=== PATIENT | female | born 1980 | race Caucasian/White ===

== ENCOUNTER 2016-12-18 08:24 | Emergency (ER) | payer OTHER ==
[2016-12-18 08:34] VITALS: BMI 29.2
--- NOTE | 2016-12-18 08:37 | PDOC ---
History of Present Illness - General Chief Complaint: Pain Stated Complaint: LT SIDE PAIN Time Seen by Provider: 12/18/16 08:36 History Source: Patient Exam Limitations: No Limitations - History of Present Illness Initial Comments: 36 yo F no significant PMH presents with L sided flank and lower abdominal pain since yesterday. She states that the pain started yesterday evening and has been progressively worsening since then. It is now severe and constant. Pain is associated with nausea. No vomiting or diarrhea. No prior similar symptoms. Past History - Past Medical History Allergies/Adverse Reactions: Allergies Allergy/AdvReac Type Severity Reaction Status Date / Time No Known Allergies Allergy Unverified 12/18/16 08:28 Home Medications: Ambulatory Orders Cephalexin Monohydrate [Keflex -] 500 mg PO BID #28 capsule 12/18/16 Ondansetron [Zofran -] 4 mg PO TID PRN #21 tablet 12/18/16 Other medical history: NONE - Psycho/Social/Smoking Cessation Hx Anxiety: No Suicidal Ideation: No Smoking History: Never smoked Number of Cigarettes Smoked Daily: 0 Hx Alcohol Use: No Drug/Substance Use Hx: No Substance Use Type: None Review of Systems - Review of Systems Able to Perform ROS?: Yes Comments:: GENERAL/CONSTITUTIONAL: No fever or chills. No weakness. HEAD, EYES, EARS, NOSE AND THROAT: No change in vision. No ear pain or discharge. No sore throat. CARDIOVASCULAR: No chest pain or shortness of breath. RESPIRATORY: No cough, wheezing, or hemoptysis. GASTROINTESTINAL: +Abdominal pain. +Nausea. No vomiting, diarrhea or constipation. GENITOURINARY: No dysuria, frequency, or change in urination. MUSCULOSKELETAL: No joint or muscle swelling or pain. No neck or back pain. SKIN: No rash NEUROLOGIC: No headache, vertigo, loss of consciousness, or change in strength/ sensation. ENDOCRINE: No increased thirst. No abnormal weight change. HEMATOLOGIC/LYMPHATIC: No anemia, easy bleeding, or history of blood clots. ALLERGIC/IMMUNOLOGIC: No hives or skin allergy. *Physical Exam - Vital Signs Last Vital Signs Temp Pulse Resp BP Pulse Ox 98.2 F 65 18 119/73 99 12/18/16 08:26 12/18/16 08:26 12/18/16 08:26 12/18/16 08:26 12/18/16 08:26 - Physical Exam Comments: GENERAL: Awake, alert, and fully oriented. Appears uncomfortable. HEAD: No signs of trauma EYES: PERRLA, EOMI, sclera anicteric, conjunctiva clear ENT: Auricles normal inspection, hearing grossly normal, nares patent, oropharynx clear without exudates. Moist mucosa NECK: Normal ROM, supple, no lymphadenopathy, JVD, or masses LUNGS: Breath sounds equal, clear to auscultation bilaterally. No wheezes, and no crackles HEART: Regular rate and rhythm, normal S1 and S2, no murmurs, rubs or gallops ABDOMEN: Soft, +LLQ tenderness, normoactive bowel sounds. No guarding, no rebound. No masses. + L CVAT. EXTREMITIES: Normal range of motion, no edema. No clubbing or cyanosis. No cords, erythema, or tenderness NEUROLOGICAL: Cranial nerves II through XII grossly intact. Normal speech, normal gait SKIN: Warm, Dry, normal turgor, no rashes or lesions noted. ED Treatment Course - LABORATORY CBC & Chemistry Diagram: 12/18/16 09:27 12/18/16 09:40 Medical Decision Making - Medical Decision Making CT no acute findings. Will treat for presumed pyelo. Tolerating PO, stable for DC home. *DC/Admit/Observation/Transfer Diagnosis at time of Disposition: Pyelonephritis - Discharge Dispostion Disposition: HOME Condition at time of disposition: Stable Admit: No - Prescriptions Prescriptions: Cephalexin Monohydrate [Keflex -] 500 mg PO BID #28 capsule Ondansetron [Zofran -] 4 mg PO TID PRN #21 tablet PRN Reason: Nausea And/Or Vomiting - Referrals Referrals: Laron Jo MD [Primary Care Provider] - - Patient Instructions Printed Discharge Instructions: DI for Kidney Infection Print Language: SWEDISH
[2016-12-18] MEDS ORDERED: ONDANSETRON 4 MG/2 ML VIAL IVPUSH ONE (09:13)
[2016-12-18] MEDS ORDERED: SODIUM CHLORIDE 1,000 ML IV STA (09:13)
[2016-12-18] MEDS ORDERED: ONDANSETRON 4 MG/2 ML VIAL ONE (09:23)
[2016-12-18 09:50] LABS: BASOPHIL 0.5 % (0-2.0); EOSINOPHIL 0.7 % (0-4.5); MCH 35.4 pg (25.7-33.7); MCHC 36.4 g/dl (32.0-36.0); MEAN CELL VOLUME 97.2 fl (80-96); MEAN PLT VOLUME 9.7 fl (7.5-11.1); PLATELET COUNT 195 K/MM3 (134-434); RDW 12.6 % (11.6-15.6); WHITE BLOOD COUNT 11.9 K/mm3 (4.0-10.0)
[2016-12-18] MEDS ORDERED: KETOROLAC TROMETHAMINE 30 MG/1 ML VIAL IVPUSH ONE (09:54)
[2016-12-18] MEDS ORDERED: KETOROLAC TROMETHAMINE 30 MG/1 ML VIAL ONE (10:01)
[2016-12-18 10:15] LABS: ALBUMIN 3.9 g/dl (3.4-5.0); ALK PHOS 106 U/L (45-117); ANION GAP 7 (8-16); BILIRUBIN,TOTAL 2.7 mg/dL (0.2-1.0); CALCIUM 8.9 mg/dL (8.5-10.1); CO2 29 mmol/L (21-32); CREATININE 0.5 mg/dL (0.55-1.02); GLUCOSE,RANDOM 99 mg/dL (74-106); SGOT/AST 23 U/L (15-37); SGPT/ALT 36 U/L (12-78); TOT PROT 7.7 g/dl (6.4-8.2)
[2016-12-18 11:12] LABS: URINE APPEARANCE CLOUDY; URINE BILIRUBIN NEGATIVE (NEGATIVE); URINE BLOOD 2+ (NEGATIVE); URINE COLOR YELLOW; URINE GLUCOSE (UA) NEGATIVE (NEGATIVE); URINE KETONE NEGATIVE (NEGATIVE); URINE NITRITE POSITIVE (NEGATIVE); URINE UROBILINOGEN NEGATIVE mg/dL (0.2-1.0)
[2016-12-18 11:13] LABS: URINE LEUK ESTERASE 3+ (NEGATIVE); URINE PROTEIN 2+ (NEGATIVE)
[2016-12-18] MEDS ORDERED: CEFTRIAXONE 1 GM in DEXTROSE 5%-WATER - 50 ML IVPB ONE (11:26)
[2016-12-18] MEDS ORDERED: CEFTRIAXONE 50 ML ONE (11:51)
[2016-12-18 12:21] LABS: URINE BACTERIA RARE /hpf (NONE SEEN); URINE RBC 13 /hpf (0-3); URINE WBC 240 /hpf (3-5)
[2016-12-18 12:41] VITALS: BP 106/64; PULSE 68; TEMP 98.6
== END 2016-12-18 12:45 | disposition home or self-care (01) ==
LOC: JER 08:24
PROC: 3E03329 Introduction of Other Anti-infective into Peripheral Vein, Percutaneous Approach (ICD-10-PCS; principal; 2016-12-18)
PROC: 3E0333Z Introduction of Anti-inflammatory into Peripheral Vein, Percutaneous Approach (ICD-10-PCS; 2016-12-18)
PROC: 3E033GC Introduction of Other Therapeutic Substance into Peripheral Vein, Percutaneous Approach (ICD-10-PCS; 2016-12-18)
PROC: 3E0337Z Introduction of Electrolytic and Water Balance Substance into Peripheral Vein, Percutaneous Approach (ICD-10-PCS; 2016-12-18)
DX: N12 Tubulo-interstitial nephritis, not specified as acute or chronic (principal)
CPT/HCPCS: 36415; 74176; 80053; 81003; 81015; 83690; 84703; 85025; 87086; 87186; 96361; 96365; 96375; 99283-25

== ENCOUNTER 2016-12-21 01:53 | Emergency (ER) | payer OTHER ==
--- NOTE | 2016-12-21 01:58 | PDOC ---
History of Present Illness <Dilia Rangel - Last Filed: 12/21/16 06:51> - History of Present Illness Initial Comments: 36 year old female with recent salpingitis, tubal ligation, 2 caesarean sections presenting with abdominal pain that began yesterday afternoon. She was ED 3 days ago with left lower quadrant pain and diagnosed with UTI/ Pyelopnephritis and discharged with Keflex and Zofran. She has been taking her medications as prescribed. Her pain today is mostly in the right upper abdomen and radiates to the back. Endorses chills, nausea, and vomiting. She eventually admitted to ingestion of quesadilla which exacerbated her abdominal pain. Denies fevers, diarrhea, constipation, chest pain, urinary changes, hematuria, or bloody bowel movements. 12/21/16 02:48 12/21/16 04:06 <Sergio Thompson - Last Filed: 12/21/16 07:18> - General Stated Complaint: PAIN Time Seen by Provider: 12/21/16 01:57 Past History <Dilia Rangel - Last Filed: 12/21/16 06:51> - Psycho/Social/Smoking Cessation Hx Anxiety: No Suicidal Ideation: No Smoking History: Never smoked Number of Cigarettes Smoked Daily: 0 Hx Alcohol Use: No Drug/Substance Use Hx: No Substance Use Type: None <Sergio Thompson - Last Filed: 12/21/16 07:18> - Past Medical History Allergies/Adverse Reactions: Allergies Allergy/AdvReac Type Severity Reaction Status Date / Time No Known Allergies Allergy Verified 12/21/16 02:01 Home Medications: Ambulatory Orders Cephalexin Monohydrate [Keflex -] 500 mg PO BID #28 capsule 12/18/16 Ondansetron [Zofran -] 4 mg PO TID PRN #21 tablet 12/18/16 Review of Systems - Review of Systems Constitutional: Yes: Chills. No: Diaphoresis, Fever HEENTM: No: Eye Pain, Blurred Vision, Recent change in vision, Double Vision Respiratory: No: Cough, Orthopnea, Shortness of Breath Cardiac (ROS): No: Chest Pain, Edema, Lightheadedness ABD/GI: Yes: Nausea, Vomiting. No: Diarrhea, Poor Appetite : Yes: Flank Pain (Right flank pain). No: Discharge, Frequency Musculoskeletal: Yes: Back Pain Integumentary: No: Bruising, Erythema Neurological: No: Headache, Numbness <Sergio Thompson - Last Filed: 12/21/16 07:18> *Physical Exam - Vital Signs Last Vital Signs Temp Pulse Resp BP Pulse Ox 97.5 F L 63 20 98/77 98 12/21/16 06:41 12/21/16 06:30 12/21/16 06:30 12/21/16 06:30 12/21/16 06:30 <RangelDilia - Last Filed: 12/21/16 06:51> - Physical Exam General Appearance: Yes: Nourished, Appropriately Dressed, Apparent Distress, Moderate Distress, Other (Actively moaning in pain during exam) HEENT: positive: EOMI, EDVIN, Normal Voice Neck: positive: Trachea midline, Normal Thyroid. negative: Tender Respiratory/Chest: positive: Lungs Clear, Normal Breath Sounds. negative: Chest Tender, Respiratory Distress, Accessory Muscle Use Cardiovascular: positive: Regular Rhythm, Bradycardia, Other (Sinus bradycardia) . negative: Regular Rate Gastrointestinal/Abdominal: positive: Normal Bowel Sounds, Tender (RUQ tenderness with RLQ tenderness. Voluntary guarding. Negative Rosving's sign, negative mcburney's sign), Soft. negative: Flat, Organomegaly Musculoskeletal: positive: Normal Inspection Extremity: positive: Normal Inspection, Normal Range of Motion. negative: Tender Integumentary: positive: Normal Color, Dry, Warm Neurologic: positive: Fully Oriented, Alert, Other (Writhing in pain) <Sergio Thompson - Last Filed: 12/21/16 07:18> ED Treatment Course - LABORATORY CBC & Chemistry Diagram: 12/21/16 02:53 12/21/16 04:00 - ADDITIONAL ORDERS Additional order review: Laboratory Results 12/21/16 12/21/16 12/21/16 04:50 04:00 02:53 Sodium 138 Cancelled Potassium 3.7 Cancelled Chloride 104 Cancelled Carbon Dioxide 26 Cancelled Anion Gap 8 Cancelled BUN 12 Cancelled Creatinine 0.5 L Cancelled Creat Clearance w eGFR > 60 Cancelled Random Glucose 118 H Cancelled Calcium 8.2 L Cancelled Total Bilirubin 1.5 H D Cancelled AST 23 Cancelled ALT 36 Cancelled Alkaline Phosphatase 107 Cancelled Total Protein 7.0 Cancelled Albumin 3.4 Cancelled Total Amylase 36 Lipase 180 Urine Color Straw Urine Appearance Clear Urine pH 6.0 Urine Protein Negative Urine Glucose (UA) Negative Urine Ketones Negative Urine Blood Negative Urine Nitrite Negative Urine Bilirubin Negative Urine Urobilinogen Negative Ur Leukocyte Esterase 3+ H Urine RBC 8 Urine WBC 17 Ur Epithelial Cells Few Urine Bacteria Rare Urine Mucus Rare Urine HCG, Qual Negative 12/21/16 02:53 RBC 3.89 MCV 98.2 H MCHC 35.1 RDW 12.8 MPV 9.5 Neutrophils % 57.5 D Lymphocytes % 33.3 D Monocytes % 6.0 Eosinophils % 2.3 D Basophils % 0.9 - RADIOLOGY Radiology Studies Ordered: Category Date Time Status CHEST X-RAY PORTABLE* [RAD] Stat Radiology 12/21/16 03:51 Taken ABDOMEN US -LIMITED [US] Stat Ultrasound 12/21/16 02:46 Ordered - Medications Given in the ED: ED Medications Discontinued Medications Generic Name Dose Route Start Last Admin Trade Name Freq PRN Reason Stop Dose Admin Acetaminophen 1,000 mg 12/21/16 03:21 12/21/16 03:27 Ofirmev Injection - IVPB 12/21/16 03:22 1,000 mg ONCE ONE Administration Morphine Sulfate 2 mg 12/21/16 02:38 12/21/16 02:52 Morphine Injection - IVPUSH 12/21/16 02:39 2 mg ONCE ONE Administration Morphine Sulfate 2 mg 12/21/16 03:18 12/21/16 03:27 Morphine Injection - IVPUSH 12/21/16 03:19 Not Given ONCE ONE Sodium Chloride 1,000 ml 12/21/16 03:33 12/21/16 03:40 Normal Saline - IV 12/21/16 03:34 1,000 ml ONCE ONE Administration <Dilia Rangel - Last Filed: 12/21/16 06:51> - LABORATORY CBC & Chemistry Diagram: 12/21/16 02:53 12/21/16 04:00 <Segrio Thompson - Last Filed: 12/21/16 07:18> Medical Decision Making - Medical Decision Making 36 year old female with recent ED visit for UTI/ Pyelonephritis (discharged with Keflex three days previous) presenting with RUQ and LLQ tenderness to palpation. The patient still has her gallbladder and appendix so cholelithiasis and appendicitis are high on the differential as well as right sided pyelonephritis. Will obtain CMP, CBC, and RUQ ultrasound and administer 2 MG of Morphine. 12/21/16 04:00 At approximately 3:50 AM the patient was continuing to moan in pain at which point the attending was asked consulted on which pain medications to administer. It was agreed upon to administer 1G of Tylenol IV. When the attending was evaluating the patient, it was noticed that she was again bradycardic at which point an EKG was ordered. A blood pressure was repeated and noted to be 106 systolic which was a drop from her presenting pressure of 137 systolic. An abdominal ultrasound was notable for multiple stones in her gallbladder. Her repeat pressure was 108 systolic and 1 L NS was started on her. 12/21/16 05:35 Patient's pain well controlled and she is talking to her friend at bedside without difficulty. Labs significant for Bili 1.5, Urine WBC 17, and Urine Leuk Esterase. 12/21/16 07:15 The patient was signed out to Dr. Contreras at 7:00 AM in stable condition pending an abdominal US. 12/21/16 07:16 12/21/16 07:18 <Sergio Thompson - Last Filed: 12/21/16 07:18> *DC/Admit/Observation/Transfer <Dilia Rangel - Last Filed: 12/21/16 06:51> - Discharge Dispostion Admit: No <Sergio Thompson - Last Filed: 12/21/16 07:18> Diagnosis at time of Disposition: Cholelithiases - Referrals Referrals: Edith Jean MD [Primary Care Provider] -
[2016-12-21 02:23] VITALS: BMI 29.7
[2016-12-21] MEDS ORDERED: morphine CARPU-JECT 2 MG/1 ML DISP.SYRIN IVPUSH ONE ×2 (02:38→03:18)
[2016-12-21] MEDS ORDERED: morphine CARPU-JECT 4 MG/1 ML DISP.SYRIN ONE (02:45)
--- NOTE | 2016-12-21 02:49 | PDOC ---
Attending Attestation - Resident Resident Name: Jeison Thompsonbonniepetar - HPI HPI: 12/21/16 04:22 RUQ pain began today in earnest; pt is overweight and she ate quesadillas. SHe has bilary colic and bedside US shows multiple large stones in the GB, however unclear if she has GB wall thickening. Pt had a bad reaction to the morphine 2mg that we gave her -- she became hypotensive and bradycardic -- and as a result she was hydrated and we were about to give atropine, however, pt didn't require it; her HR came up to mid 50s and 1L fluid was bolused. - Physicial Exam PE: 12/21/16 05:55 Agree with resident's note. Pt has RUQ pain. Afebrile low BP and slow HR. EKG bradycardia; sinus rhythm. Labs show LFTs are normal; Total Bili is elevated. Pt is awaiting SONO GB and liver. SHe will be signed out to the day ER. 12/21/16 06:29 CXR portable is clear; rotated film - Medical Decision Making 12/21/16 19:34 Pt will be signed out to the ER day doctor who will follow her AM sonogram and disposition the patient accordingly.
[2016-12-21 03:00] LABS: BASOPHIL 0.9 % (0-2.0); EOSINOPHIL 2.3 % (0-4.5); MCH 34.5 pg (25.7-33.7); MCHC 35.1 g/dl (32.0-36.0); MEAN CELL VOLUME 98.2 fl (80-96); MEAN PLT VOLUME 9.5 fl (7.5-11.1); NEUTROPHILS 57.5 % (42.8-82.8); PLATELET COUNT 223 K/MM3 (134-434); RDW 12.8 % (11.6-15.6)
[2016-12-21] MEDS ORDERED: ACETAMINOPHEN 1000 MG/100 ML VIAL (NON FORMULARY) IVPB ONE (03:21)
[2016-12-21] MEDS ORDERED: ACETAMINOPHEN INJECTION 100 ML IVPB ONE (03:21)
[2016-12-21] MEDS ORDERED: ATROPINE SULFATE 1 MG/10 ML DISP.SYRIN ONE (03:29)
[2016-12-21] MEDS ORDERED: SODIUM CHLORIDE 0.9% 1000 ML INFUS.BAG IV ONE (03:33)
[2016-12-21 04:33] LABS: ALBUMIN 3.4 g/dl (3.4-5.0); AMYLASE 36 U/L (25-115); ANION GAP 8 (8-16); BILIRUBIN,TOTAL 1.5 mg/dL (0.2-1.0); CALCIUM 8.2 mg/dL (8.5-10.1); CO2 26 mmol/L (21-32); CREATININE 0.5 mg/dL (0.55-1.02); GLUCOSE,RANDOM 118 mg/dL (74-106); SGOT/AST 23 U/L (15-37); SGPT/ALT 36 U/L (12-78)
[2016-12-21 04:34] LABS: ALK PHOS 107 U/L (45-117)
[2016-12-21 04:56] LABS: URINE APPEARANCE CLEAR; URINE BILIRUBIN NEGATIVE (NEGATIVE); URINE BLOOD NEGATIVE (NEGATIVE); URINE COLOR STRAW; URINE GLUCOSE (UA) NEGATIVE (NEGATIVE); URINE KETONE NEGATIVE (NEGATIVE); URINE NITRITE NEGATIVE (NEGATIVE); URINE PROTEIN NEGATIVE (NEGATIVE); URINE UROBILINOGEN NEGATIVE mg/dL (0.2-1.0)
[2016-12-21 04:57] LABS: URINE LEUK ESTERASE 3+ (NEGATIVE)
[2016-12-21 05:00] LABS: URINE BACTERIA RARE /hpf (NONE SEEN); URINE MUCUS RARE; URINE RBC 8 /hpf (0-3); URINE WBC 17 /hpf (3-5)
[2016-12-21 08:21] VITALS: BP 102/57; PULSE 68; TEMP 98
--- NOTE | 2016-12-21 09:50 | PDOC ---
*Physical Exam - Vital Signs Last Vital Signs Temp Pulse Resp BP Pulse Ox 98.0 F 68 18 102/57 98 12/21/16 08:20 12/21/16 08:20 12/21/16 08:20 12/21/16 08:20 12/21/16 08:20 ED Treatment Course - LABORATORY CBC & Chemistry Diagram: 12/21/16 02:53 12/21/16 04:00 - ADDITIONAL ORDERS Additional order review: Laboratory Results 12/21/16 12/21/16 12/21/16 04:50 04:00 02:53 Sodium 138 Cancelled Potassium 3.7 Cancelled Chloride 104 Cancelled Carbon Dioxide 26 Cancelled Anion Gap 8 Cancelled BUN 12 Cancelled Creatinine 0.5 L Cancelled Creat Clearance w eGFR > 60 Cancelled Random Glucose 118 H Cancelled Calcium 8.2 L Cancelled Total Bilirubin 1.5 H D Cancelled AST 23 Cancelled ALT 36 Cancelled Alkaline Phosphatase 107 Cancelled Total Protein 7.0 Cancelled Albumin 3.4 Cancelled Total Amylase 36 Lipase 180 Urine Color Straw Urine Appearance Clear Urine pH 6.0 Urine Protein Negative Urine Glucose (UA) Negative Urine Ketones Negative Urine Blood Negative Urine Nitrite Negative Urine Bilirubin Negative Urine Urobilinogen Negative Ur Leukocyte Esterase 3+ H Urine RBC 8 Urine WBC 17 Ur Epithelial Cells Few Urine Bacteria Rare Urine Mucus Rare Urine HCG, Qual Negative 12/21/16 02:53 RBC 3.89 MCV 98.2 H MCHC 35.1 RDW 12.8 MPV 9.5 Neutrophils % 57.5 D Lymphocytes % 33.3 D Monocytes % 6.0 Eosinophils % 2.3 D Basophils % 0.9 - Medications Given in the ED: ED Medications Discontinued Medications Generic Name Dose Route Start Last Admin Trade Name Prema PRN Reason Stop Dose Admin Acetaminophen 1,000 mg 12/21/16 03:21 12/21/16 03:27 Ofirmev Injection - IVPB 12/21/16 03:22 1,000 mg ONCE ONE Administration Morphine Sulfate 2 mg 12/21/16 02:38 12/21/16 02:52 Morphine Injection - IVPUSH 12/21/16 02:39 2 mg ONCE ONE Administration Morphine Sulfate 2 mg 12/21/16 03:18 12/21/16 03:27 Morphine Injection - IVPUSH 12/21/16 03:19 Not Given ONCE ONE Sodium Chloride 1,000 ml 12/21/16 03:33 12/21/16 03:40 Normal Saline - IV 12/21/16 03:34 1,000 ml ONCE ONE Administration Medical Decision Making - Medical Decision Making 12/21/16 09:45 36F with recent ED visit for UTI on Keflex 3 days ago presenting with RUQ and LLQ on palpation. U/S showed 2.3cm calculus on gallbladder lumen. To be evaluated by Dr. Ramachandran outpatient. 12/21/16 09:52 Patient stable, improved and comfortable. ready for d/c *DC/Admit/Observation/Transfer Diagnosis at time of Disposition: Cholelithiases - Discharge Dispostion Disposition: HOME Condition at time of disposition: Improved Admit: No - Prescriptions Prescriptions: Naproxen [Naprosyn -] 500 mg PO BID #14 tablet - Referrals Referrals: Edith Jean MD [Primary Care Provider] - Attila Ramachandran MD [Staff Physician] - - Patient Instructions Printed Discharge Instructions: Kidney Stones -- Adult, DI for Kidney Stones, DI for Extracorporeal Shock Wave Lithotripsy, Laparoscopic Ureterolithotomy Print Language: TURKISH - Post Discharge Activity
--- NOTE | 2016-12-22 18:28 | EKG ---
Test Reason : Blood Pressure : / mmHG Vent. Rate : 054 BPM Atrial Rate : 054 BPM P-R Int : 170 ms QRS Dur : 084 ms QT Int : 410 ms P-R-T Axes : 027 -03 031 degrees QTc Int : 388 ms SINUS BRADYCARDIA NONDIAGNOSTIC Q WAVE IN III aVF ATYPICAL R PROGRESSION V1-V3 PROBABLE ATRIAL AN[BNORMALITY NORMAL ST-T WAVES NO PREVIOUS ECGS AVAILABLE CLINICAL CORRELATION IS RECOMMENDED Confirmed by ERICA YUEN MD ([id number]) on 12/22/2016 6:28:04 PM Referred By: Confirmed By:ERICA YUEN MD
== END 2016-12-21 10:03 | disposition home or self-care (01) ==
LOC: JER 01:53
PROC: 3E033NZ Introduction of Analgesics, Hypnotics, Sedatives into Peripheral Vein, Percutaneous Approach (ICD-10-PCS; principal; 2016-12-21)
DX: K80.20 Calculus of gallbladder without cholecystitis without obstruction (principal); Z87.440 Personal history of urinary (tract) infections
CPT/HCPCS: 36415; 71010-TC; 76705-TC; 80053; 81003; 81015; 82150; 83690; 84703; 85025; 93005; 93010; 96374; 96375; 99284-25

== ENCOUNTER 2017-04-20 20:03 | Emergency (ER) | payer OTHER ==
[2017-04-20 20:11] VITALS: BP 114/82; PULSE 72; TEMP 98; BMI 31.2
--- NOTE | 2017-04-20 20:21 | PDOC ---
History of Present Illness - General History Source: Patient Exam Limitations: No Limitations - History of Present Illness Initial Comments: 04/20/17 21:22 The patient is a 37 year old female, with a significant past medical history of , who presents to the emergency department with a headache for the past 3 days. She describes her headache as diffused throughout, ranging from mild to moderate and constant in nature. She reports that the headache is exacerbated with light. She also reports that taking Advil usually helps alleviate her headache. She states she is also experiencing left face numbness and left hand numbness that usually resolves. She denies any changes in vision, bowel or bladder habits. The patient denies chest pain, shortness of breath, and dizziness. Denies fever , chills, nausea, vomit, diarrhea and constipation. Denies dysuria, frequency, urgency and hematuria. LMP: 04/13/2017 Allergies: None Past surgical history: (x2), tubal ligation. Social history: No alcohol, tobacco or drug use reported <Deondre Mehta - Last Filed: 04/20/17 21:22> <Smita Ng - Last Filed: 04/21/17 01:08> - General Chief Complaint: Headache Stated Complaint: HEADACHE Time Seen by Provider: 04/20/17 20:14 Past History <Deondre Mehta - Last Filed: 04/20/17 21:22> - Past Medical History COPD: No - Suicide/Smoking/Psychosocial Hx Smoking History: Never smoked Number of Cigarettes Smoked Daily: 0 Hx Alcohol Use: No Drug/Substance Use Hx: No Substance Use Type: None <Smita Ng - Last Filed: 04/21/17 01:08> - Past Medical History Allergies/Adverse Reactions: Allergies Allergy/AdvReac Type Severity Reaction Status Date / Time morphine AdvReac Verified 04/20/17 21:29 Home Medications: Ambulatory Orders Ibuprofen [Advil -] 600 mg PO TID PRN 04/20/17 Review of Systems - Review of Systems Able to Perform ROS?: Yes Comments:: 04/20/17 21:24 GENERAL/CONSTITUTIONAL: No fever or chills. No weakness. HEAD, EYES, EARS, NOSE AND THROAT: No change in vision. No ear pain or discharge. No sore throat.- CARDIOVASCULAR: No chest pain or shortness of breath RESPIRATORY: No cough, wheezing, or hemoptysis. GASTROINTESTINAL: No nausea, vomiting, diarrhea or constipation. GENITOURINARY: No dysuria, frequency, or change in urination. MUSCULOSKELETAL: No joint or muscle swelling or pain. No neck or back pain. SKIN: No rash NEUROLOGIC: (+) Headache, left hand numbness and left face numbness. No vertigo , loss of consciousness. ENDOCRINE: No increased thirst. No abnormal weight change HEMATOLOGIC/LYMPHATIC: No anemia, easy bleeding, or history of blood clots. ALLERGIC/IMMUNOLOGIC: No hives or skin allergy. <Deondre Mehta - Last Filed: 04/20/17 21:22> *Physical Exam - Vital Signs Last Vital Signs Temp Pulse Resp BP Pulse Ox 98 F 72 16 114/82 99 04/20/17 20:09 04/20/17 20:09 04/20/17 20:09 04/20/17 20:09 04/20/17 20:09 - Physical Exam Comments: 04/20/17 21:24 GENERAL: Awake, alert, and fully oriented, in no acute distress HEAD: No signs of trauma, normocephalic, atraumatic EYES: PERRLA, EOMI, sclera anicteric, conjunctiva clear ENT: Auricles normal inspection, hearing grossly normal, nares patent, oropharynx clear without exudates. Moist mucosa NECK: Normal ROM, supple, no lymphadenopathy, JVD, or masses LUNGS: No distress, speaks full sentences, clear to auscultation bilaterally HEART: Regular rate and rhythm, normal S1 and S2, no murmurs, rubs or gallops, peripheral pulses normal and equal bilaterally. ABDOMEN: Soft, nontender, normoactive bowel sounds. No guarding, no rebound. No masses EXTREMITIES : Normal inspection, Normal range of motion, no edema. No clubbing or cyanosis. NEUROLOGICAL: Cranial nerves II through XII grossly intact. Normal speech, normal gait, no focal sensorimotor deficits SKIN: Warm, Dry, normal turgor, no rashes or lesions noted. <Deondre Mehta - Last Filed: 04/20/17 21:22> - Vital Signs Last Vital Signs Temp Pulse Resp BP Pulse Ox 98 F 72 16 114/82 99 04/20/17 20:09 04/20/17 20:09 04/20/17 20:09 04/20/17 20:09 04/20/17 20:09 <Smita Ng - Last Filed: 04/21/17 01:08> Medical Decision Making - Medical Decision Making 04/20/17 22:52 PT HAD C/O HEADACHE FOR LAST 3 DAYS , NO visual changes,no nasuea or vomiting NO GROSS FOCAL NEURO DEFICITS -NO CONSTITUTIONAL SYMPTOMS -pt had brief dystonic response to reglan because she got the reglan before her benadrly,her symptoms resolved NIHSS is zero -pt's headache resolved 04/21/17 00:34 ct scan of head: There is no evidence of acute infarction, and is no hemorrhage , no mass lesion is seen, no skull fracture <Smita Ng - Last Filed: 04/21/17 01:08> *DC/Admit/Observation/Transfer - Attestations Scribe Attestion: 04/20/17 20:25 Documentation prepared by Deondre Mehta, acting as medical staff specialist for Smita Ng MD <Deondre Mehta - Last Filed: 04/20/17 21:22> <Smita Ng - Last Filed: 04/21/17 01:08> Diagnosis at time of Disposition: Headache Qualifiers: Headache type: new daily persistent Qualified Code(s): G44.52 - New daily persistent headache (NDPH) - Discharge Dispostion Disposition: HOME Condition at time of disposition: Stable - Referrals Referrals: Siddharth Keller DO [Staff Physician] - - Patient Instructions Printed Discharge Instructions: DI for Hormonal and Tension Headaches Additional Instructions: please follow up with your doctor or see a neurologist for further evaluation of your headaches Return to the emergency department for any worsening symptoms
[2017-04-20] MEDS ORDERED: KETOROLAC TROMETHAMINE 60 MG/2 ML VIAL ONE (20:29)
[2017-04-20] MEDS ORDERED: METOCLOPRAMIDE HCL INJECTION 10 MG/2 ML VIAL IVPUSH ONE (21:10)
[2017-04-20] MEDS ORDERED: METOCLOPRAMIDE HCL INJECTION 10 MG/2 ML VIAL ONE (21:15)
[2017-04-20] MEDS ORDERED: methylPREDNISolone NA SUCC 125 MG/2 ML VIAL ONE (21:33)
[2017-04-20 23:18] LABS: URINE APPEARANCE CLEAR; URINE BILIRUBIN NEGATIVE (NEGATIVE); URINE BLOOD NEGATIVE (NEGATIVE); URINE COLOR LTYELLOW; URINE GLUCOSE (UA) NEGATIVE (NEGATIVE); URINE KETONE NEGATIVE (NEGATIVE); URINE NITRITE NEGATIVE (NEGATIVE); URINE PROTEIN NEGATIVE (NEGATIVE); URINE UROBILINOGEN NEGATIVE mg/dL (0.2-1.0)
[2017-04-21 12:24] LABS: URINE LEUK ESTERASE Negative (NEGATIVE)
== END 2017-04-21 02:11 | disposition home or self-care (01) ==
LOC: JER 20:03
PROC: 3E033GC Introduction of Other Therapeutic Substance into Peripheral Vein, Percutaneous Approach (ICD-10-PCS; principal; 2017-04-20)
DX: G44.52 New daily persistent headache (NDPH) (principal)
CPT/HCPCS: 70450-TC; 81003; 96374; 96375; 99282-25

== ENCOUNTER 2017-06-29 16:32 | Emergency (ER) | payer OTHER ==
[2017-06-29 16:48] VITALS: BP 108/77; PULSE 76; TEMP 98.4; BMI 30.2
--- NOTE | 2017-06-29 17:37 | PDOC ---
History of Present Illness - General Chief Complaint: Respiratory Stated Complaint: FEVER Time Seen by Provider: 06/29/17 17:36 History Source: Patient Exam Limitations: No Limitations - History of Present Illness Initial Comments: 06/29/17 17:36 Patient is a [37-year-old female, no significant medical history currently on no medication presents with headache, fever, generalized body aches and cough, cough is nonproductive. No chest pain or shortness of breath. Father with similar symptoms. Not taken anything for the headache or fever. Symptoms started suddenly on Friday evening.] Past Medical History: [Denies]. Allergies: No known allergies Medications: [None] Family History: Non-contributory Social History: Denies smoking, alcohol use, or IVDU Vital signs on arrival are [notable for temperature of 94] Review of Systems GENERAL/CONSTITUTIONAL: [Fever and generalized body aches. No weakness. No weight change.] HEAD, EYES, EARS, NOSE AND THROAT: [No change in vision. No ear pain or discharge. No sore throat. ] CARDIOVASCULAR: [No chest pain or shortness of breath.] RESPIRATORY: [Moist cough, no wheezing, or hemoptysis.] GASTROINTESTINAL: [No nausea, vomiting, diarrhea or constipation. No rectal bleeding.] GENITOURINARY: [No dysuria, frequency, or change in urination.] MUSCULOSKELETAL: [No joint or muscle swelling or pain. No neck or back pain.] SKIN AND BREASTS: [No rash or easy bruising.] NEUROLOGIC: [Frontal headache, no vertigo, loss of consciousness, or loss of sensation.] PSYCHIATRIC: [No depression or anxiety.] ENDOCRINE: [No increased thirst. No abnormal weight change.] HEMATOLOGIC/LYMPHATIC: [No anemia, easy bleeding, or history of blood clots.] ALLERGIC/IMMUNOLOGIC: [No hives or skin allergy. No latex allergy.] Physical Exam: GENERAL: [The patient is awake, alert, and fully oriented, in no acute distress. ] HEAD: [Normal with no signs of trauma.] EYES: [Pupils equal, round and reactive to light, extraocular movements intact, sclera anicteric, conjunctiva clear.] ENT: [Ears normal, nares patent, oropharynx clear without exudates. Moist mucous membranes. No uvula deviation] NECK: [Normal range of motion, supple without lymphadenopathy, JVD, or masses.] LUNGS: [Breath sounds equal, clear to auscultation bilaterally. No wheezes, and no crackles.] HEART: [Regular rate and rhythm, normal S1 and S2 without murmur, rub or gallop. ] ABDOMEN: [Soft, nontender, normoactive bowel sounds. No guarding, no rebound. No masses. No bruising or abrasions] MUSCULOSKELETAL: [Normal range of motion, no edema. No clubbing or cyanosis. No cords, erythema, or tenderness. No CVA Tenderness with fist.] NEUROLOGICAL: [Cranial nerves II through XII grossly intact. Normal speech, normal gait.] SKIN: [Warm, Dry, normal turgor, no rashes or lesions noted.] Past History - Past Medical History Allergies/Adverse Reactions: Allergies Allergy/AdvReac Type Severity Reaction Status Date / Time morphine AdvReac Verified 06/29/17 16:44 Home Medications: Ambulatory Orders Ibuprofen [Advil -] 600 mg PO TID PRN 04/20/17 Ibuprofen [Motrin -] 600 mg PO QID #28 tablet 06/29/17 Oseltamivir Phosphate [Tamiflu -] 75 mg PO BID #10 capsule 06/29/17 COPD: No - Immunization History Immunization Up to Date: No - Suicide/Smoking/Psychosocial Hx Smoking History: Never smoked Number of Cigarettes Smoked Daily: 0 Hx Alcohol Use: No Drug/Substance Use Hx: No Substance Use Type: None *Physical Exam - Vital Signs Last Vital Signs Temp Pulse Resp BP Pulse Ox 98.4 F 76 20 108/77 100 06/29/17 16:45 06/29/17 16:45 06/29/17 16:45 06/29/17 16:45 06/29/17 16:45 Medical Decision Making - Medical Decision Making 06/29/17 17:53 A/P: Patient here for influenza-type illness father with similar symptoms, Motrin given for headache will send rapid influenza 06/29/17 19:37 Rapid influenza is negative, ports that she has history of chronic headaches after have told her that her rapid influenza is -2 months ago received head CT which was negative. I will give by mouth challenge because of nausea. This and tolerating fluids without difficulty. Influenza-type illness a will DC on Tamiflu. I discussed the physical exam findings, ancillary test results and final diagnoses with the patient. I answered all of the patient's questions. The patient was satisfied with the care received and felt comfortable with the discharge plan and treatment plan. The patient will call to arrange follow-up and will return to the Emergency Department with any new, persistent or worsening symptoms. 06/29/17 19:39 06/29/17 20:03 *DC/Admit/Observation/Transfer Diagnosis at time of Disposition: Flu-like symptoms - Discharge Dispostion Disposition: HOME Condition at time of disposition: Stable Admit: No - Prescriptions Prescriptions: Ibuprofen [Motrin -] 600 mg PO QID #28 tablet Oseltamivir Phosphate [Tamiflu -] 75 mg PO BID #10 capsule - Referrals Referrals: Thomas Fraga MD [Primary Care Provider] - - Patient Instructions Printed Discharge Instructions: Influenza Additional Instructions: Increase fluids to prevent dehydration Tylenol for headache Motrin for fever greater than 101.0 Please followup with primary care in 3 days if symptoms persist Return to emergency department any increased cough, fever, inability to drink or other concerns - Post Discharge Activity Forms/Work/School Notes: Back to Work
[2017-06-29] MEDS ORDERED: IBUPROFEN 600 MG TABLET (FP) PO ONE ×2 (17:46→17:53)
[2017-06-29] MEDS ORDERED: SODIUM CHLORIDE 0.9% 1000 ML INFUS.BAG IV ONE (19:38)
== END 2017-06-29 20:22 | disposition home or self-care (01) ==
LOC: JERFT 16:32
DX: J11.1 Influenza due to unidentified influenza virus with other respiratory manifestations (principal)
CPT/HCPCS: 87804; 99281-25

== ENCOUNTER 2017-09-01 03:13 | Emergency (ER) | payer OTHER ==
[2017-09-01 04:06] VITALS: BMI 27.1
--- NOTE | 2017-09-01 04:06 | PDOC ---
History of Present Illness - General Stated Complaint: CHEST DISCOMFORT Time Seen by Provider: 09/01/17 03:42 History Source: Patient - History of Present Illness Initial Comments: 09/01/17 04:18 37 year old female presents to ED c/o chest pain. Patient state the pain is L sided, "pounding," intermittent, non-radiating and non-positional. Patient states she first felt the pain last week -- it woke her from sleep-- the pain resolved and returned this morning prompting her visit to our facility. Endorses subjective dyspnea, nausea, but not vomiting and intermittent palpitations. Also c/o B/L hand and pedal edema. Recent h/o liposuction 2 weeks previous. Allergy: Morphine Surgical: C/S x2 09/01/17 06:48 Past History - Past Medical History Allergies/Adverse Reactions: Allergies Allergy/AdvReac Type Severity Reaction Status Date / Time morphine AdvReac Verified 06/29/17 16:44 Home Medications: Ambulatory Orders Nitrofurantoin Monohyd/M-Cryst [Macrobid -] 100 mg PO BID #14 capsule 09/01/17 COPD: No - Immunization History Immunization Up to Date: No - Suicide/Smoking/Psychosocial Hx Smoking History: Never smoked Number of Cigarettes Smoked Daily: 0 Hx Alcohol Use: No Drug/Substance Use Hx: No Substance Use Type: None Review of Systems - Review of Systems Constitutional: No: Chills, Fever HEENTM: No: Recent change in vision Respiratory: Yes: Shortness of Breath. No: Productive cough Cardiac (ROS): Yes: Chest Pain. No: Lightheadedness, Palpitations ABD/GI: Yes: Nausea. No: Constipated, Diarrhea, Vomiting : No: Burning, Dysuria *Physical Exam - Physical Exam General Appearance: Yes: Nourished, Appropriately Dressed Neck: positive: Trachea midline, Supple Respiratory/Chest: positive: Lungs Clear Cardiovascular: positive: S1, S2. negative: Edema Vascular Pulses: Dorsalis-Pedis (R): 2+, Doralis-Pedis (L): 2+ Gastrointestinal/Abdominal: positive: Normal Bowel Sounds, Soft. negative: Distended, Guarding, Tenderness, Hernia, Mass Musculoskeletal: negative: CVA Tenderness (R), CVA Tenderness (L) Extremity: positive: Normal Capillary Refill, Normal Inspection Integumentary: positive: Normal Color, Dry, Warm Neurologic: positive: Fully Oriented, Alert ED Treatment Course - LABORATORY CBC & Chemistry Diagram: 09/01/17 04:05 09/01/17 04:05 Medical Decision Making - Medical Decision Making 09/01/17 06:52 37 year old female presents to ED c/o non-radiating L sided chest pain w/ subjective dyspnea. Vitals unremarkable. DDx r/o ACS, Hypothyroidism, PNA. Will obtain basic labs, CXR, Troponin. Reasess. *DC/Admit/Observation/Transfer Diagnosis at time of Disposition: Chest pain - Discharge Dispostion Disposition: HOME Condition at time of disposition: Good Admit: No - Prescriptions Prescriptions: Nitrofurantoin Monohyd/M-Cryst [Macrobid -] 100 mg PO BID #14 capsule - Referrals Referrals: Thomas Fraga MD [Primary Care Provider] - - Patient Instructions Printed Discharge Instructions: DI for Atypical Chest Pain Additional Instructions: A prescription has been called to your pharmacy. Please take the entire antibiotic course. Follow-up with your primary care doctor in the next 2 days. Return to the ED for any new/worsening/symptoms - Post Discharge Activity
[2017-09-01 04:17] LABS: BASO % 0.7 % (0-2.0); EOS % 3.1 % (0-4.5); HEMATOCRIT 37.2 % (32.4-45.2); HEMOGLOBIN 13.4 GM/dL (10.7-15.3); MCH 35.6 pg (25.7-33.7); MCHC 35.9 g/dl (32.0-36.0); MEAN CELL VOLUME 99.1 fl (80-96); MEAN PLT VOLUME 9.6 fl (7.5-11.1); MONO % 6.3 % (3.8-10.2); NEUT % 59.9 % (42.8-82.8); PLATELET COUNT 247 K/MM3 (134-434); RBC 3.75 M/mm3 (3.60-5.2); RDW 13.3 % (11.6-15.6); WHITE BLOOD COUNT 6.2 K/mm3 (4.0-10.0)
[2017-09-01 04:42] LABS: ALBUMIN 3.9 g/dl (3.4-5.0); ANION GAP 7 (8-16); BILIRUBIN,TOTAL 1.2 mg/dL (0.2-1.0); BLOOD UREA NITROGEN 12 mg/dL (7-18); CALCIUM 8.6 mg/dL (8.5-10.1); CHLORIDE 107 mmol/L (98-107); CO2 26 mmol/L (21-32); CREATININE 0.5 mg/dL (0.55-1.02); GLUCOSE,RANDOM 93 mg/dL (74-106); POTASSIUM 3.9 mmol/L (3.5-5.1); SGOT/AST 24 U/L (15-37); SGPT/ALT 46 U/L (12-78); SODIUM 140 mmol/L (136-145); TOT PROT 7.5 g/dl (6.4-8.2)
[2017-09-01 04:51] LABS: ALK PHOS 86 U/L (45-117)
[2017-09-01 06:36] LABS: URINE APPEARANCE CLOUDY; URINE BILIRUBIN NEGATIVE (<2.0 mg/dL); URINE BLOOD 1+ (NEGATIVE); URINE COLOR YELLOW; URINE GLUCOSE (UA) NEGATIVE (NEGATIVE); URINE KETONE NEGATIVE (NEGATIVE); URINE NITRITE NEGATIVE (NEGATIVE); URINE PROTEIN NEGATIVE (NEGATIVE); URINE UROBILINOGEN NEGATIVE mg/dL (0.2-1.0)
[2017-09-01 06:41] LABS: URINE LEUK ESTERASE 3+ (NEGATIVE)
[2017-09-01] MEDS ORDERED: NITROFURANTOIN MACROCRYSTAL 50 MG CAPSULE (FP) PO SCH (06:45)
[2017-09-01 06:46] LABS: EPI CELLS MODERATE /HPF (FEW); URINE MUCUS RARE; YEAST RARE
[2017-09-01 07:07] VITALS: BP 106/64; PULSE 65; TEMP 98.6
--- NOTE | 2017-09-01 23:49 | EKG ---
Test Reason : Blood Pressure : / mmHG Vent. Rate : 079 BPM Atrial Rate : 079 BPM P-R Int : 180 ms QRS Dur : 084 ms QT Int : 354 ms P-R-T Axes : 037 003 019 degrees QTc Int : 405 ms NORMAL SINUS RHYTHM WITH SINUS ARRHYTHMIA POSSIBLE INFERIOR INFARCT (CITED ON OR BEFORE 01-SEP-2017) ABNORMAL ECG WHEN COMPARED WITH ECG OF 21-DEC-2016 03:35, NO SIGNIFICANT CHANGE WAS FOUND Confirmed by FARHANA NGUYEN, MARILEE ([id number]) on 09/01/2017 11:48:52 PM Referred By: Confirmed By:MARILEE DELCID MD
== END 2017-09-01 07:25 | disposition home or self-care (01) ==
LOC: JER 03:13
DX: R07.89 Other chest pain (principal)
CPT/HCPCS: 36415; 71046-TC-FY; 80053; 81003; 81015; 82550; 84443; 84484; 84703; 85025; 87389; 93005; 93010; 99282-25

== ENCOUNTER 2019-08-22 11:34 | Emergency (ER) | payer OTHER ==
[2019-08-22 11:43] VITALS: BP 147/93; PULSE 102; TEMP 98.3
--- NOTE | 2019-08-22 11:55 | PDOC ---
History of Present Illness - General Stated Complaint: COUGH,FEVER SOB Time Seen by Provider: 08/22/19 11:40 History Source: Patient - History of Present Illness Timing/Duration: reports: other Severity: reports: moderate Past History - Past Medical History Allergies/Adverse Reactions: Allergies Allergy/AdvReac Type Severity Reaction Status Date / Time morphine AdvReac Verified 12/02/17 11:05 Home Medications: Ambulatory Orders Aspirin [Adult Aspirin] 81 mg PO DAILY 12/02/17 Famotidine [Pepcid] 20 mg PO BID 12/02/17 Sulfamethoxazole/Trimethoprim [Bactrim Ds Tablet] 1 each PO BID #14 tablet 12/05/17 Anemia: No Asthma: No Cancer: No Cardiac Disorders: No CVA: No COPD: No DVT: No Dementia: No Diabetes: No Dialysis: No GI Disorders: No Disorders: No HTN: No Hypercholesterolemia: No Kidney Stones: No Liver Disease: No Psychiatric Problems: No Seizures: No Thyroid Disease: No Lung CA: No - Surgical History Abdominal Surgery: No Appendectomy: No Cardiac Surgery: No Cholecystectomy: No Gastric Stapling: No GI Surgery: No Lung Surgery: No Neurologic Surgery: No - Immunization History Immunization Up to Date: No - Psycho Social/Smoking Cessation Hx Smoking History: Never smoked Have you smoked in the past 12 months: No Number of Cigarettes Smoked Daily: 0 Information on smoking cessation initiated: No Hx Alcohol Use: No Drug/Substance Use Hx: No Substance Use Type: None Review of Systems - Review of Systems Constitutional: Yes: Fever, Malaise, Weakness Respiratory: Yes: Cough, Shortness of Breath. No: Wheezing Cardiac (ROS): Yes: Chest Pain *Physical Exam - Vital Signs Last Vital Signs Temp Pulse Resp BP Pulse Ox 98.3 F 102 H 20 147/93 100 08/22/19 11:34 08/22/19 11:34 08/22/19 11:34 08/22/19 11:34 08/22/19 11:34 - Physical Exam General Appearance: Yes: Appropriately Dressed, Mild Distress HEENT: positive: Normal Voice. negative: Scleral Icterus (R), Scleral Icterus (L) Neck: positive: Supple. negative: Lymphadenopathy (R), Lymphadenopathy (L) Respiratory/Chest: positive: Lungs Clear, Normal Breath Sounds. negative: Respiratory Distress Cardiovascular: positive: Regular Rate, S1, S2 Integumentary: positive: Dry, Warm Neurologic: positive: Fully Oriented, Alert, Normal Mood/Affect ED Treatment Course - RADIOLOGY Radiology Studies Ordered: Category Date Time Status CHEST X-RAY PORTABLE* [RAD] Stat Radiology 08/22/19 11:40 Ordered Medical Decision Making - Medical Decision Making 08/22/19 11:51 39 yo F, no sig hx, here w/ malaise, upper back pain, cough w/ pleuritic CP and subj fever x 2-3 days. ? sob. Brother currently admitted w/ suspected covid see exam Viral syndrome ? +covid contact Afebrile w/ no e/o resp distress w/ clear lungs -covid swab sent -cxr Discharge - Discharge Information Problems reviewed: Yes Clinical Impression/Diagnosis: Cough Condition: Good Disposition: HOME - Follow up/Referral Referrals: Thomas Fraga MD [Primary Care Provider] - - Patient Discharge Instructions Patient Printed Discharge Instructions: [facility]-Coronavirus Instructions, R- [facility] COVID-19 Isolation Protocol Additional Instructions: You were seen for your cough and possible Coronavirus (COVID-19) Take Tylenol 650 mg every 6 hours as needed for fever or pain. You may take Robitussin or other [id number] cough syrup. Follow the dosing instructions on the bottle. Warm tea, honey, and salt water gargles may help your symptoms. Please take precautions and self quarantine for 2 weeks and follow-up with your primary care doctor and the Department of Health. Return to the nearest emergency department for shortness of breath, difficulty breathing, chest pain, or if you have any changes in your symptoms. Print Language: CITIZEN OF [place] - Post Discharge Activity
--- NOTE | 2019-08-22 12:27 | PDOC ---
*Physical Exam - Vital Signs Last Vital Signs Temp Pulse Resp BP Pulse Ox 98.3 F 102 H 20 147/93 100 08/22/19 11:34 08/22/19 11:34 08/22/19 11:34 08/22/19 11:34 08/22/19 11:34 Medical Decision Making - Medical Decision Making 08/22/19 12:27 pt remains confortable. LCTA, speaking full sentences awaiting cxr 08/22/19 12:33 cxr -. Pt given covid dc instructions Discharge - Discharge Information Problems reviewed: Yes Clinical Impression/Diagnosis: Cough Condition: Good Disposition: HOME - Follow up/Referral Referrals: Thomas Fraga MD [Primary Care Provider] - - Patient Discharge Instructions Patient Printed Discharge Instructions: [facility]-Coronavirus Instructions, R- [facility] COVID-19 Isolation Protocol Additional Instructions: You were seen for your cough and possible Coronavirus (COVID-19) Take Tylenol 650 mg every 6 hours as needed for fever or pain. You may take Robitussin or other [id number] cough syrup. Follow the dosing instructions on the bottle. Warm tea, honey, and salt water gargles may help your symptoms. Please take precautions and self quarantine for 2 weeks and follow-up with your primary care doctor and the Department of Health. Return to the nearest emergency department for shortness of breath, difficulty breathing, chest pain, or if you have any changes in your symptoms. Print Language: THAI - Post Discharge Activity
== END 2019-08-22 12:44 | disposition home or self-care (01) ==
LOC: JER 11:34
DX: R05 Cough (principal); Z20.828 Contact with and (suspected) exposure to other viral communicable diseases
CPT/HCPCS: 71045-TC-FY; 99283-25; U0002

== ENCOUNTER 2019-12-03 21:55 | Emergency (ER) | payer OTHER ==
[2019-12-03 22:03] VITALS: TEMP 98; BMI 27.4
--- NOTE | 2019-12-03 22:06 | PDOC ---
History of Present Illness - General History Source: Patient Exam Limitations: No Limitations - History of Present Illness Initial Comments: HPI: This is a 39 y/o F with a PMH of gallstones presenting to the ED due to 4 episodes of NBNB emesis and a headache that started yesterday. She also describes two episodes where she felt pins and needles in her face that lasted about 1.5 minutes. One episode was when she was sleeping but resolved when she repositioned. She denies accompanying abdominal pain, but admits to some indigestion. She is also complaining of a non-specific lower back pain, but denies inciting trauma or radiation. Denies chest pain, SOB, fever. She has no sick contacts. PMH: Gallstones SHx: Tubal ligation Meds: Denies Social Hx: Denies tobacco, Denies Etoh Allergies: Morphine 12/03/19 23:07 <Anastasiya Gaxiola - Last Filed: 12/04/19 00:17> <Nova Pelayo - Last Filed: 12/05/19 13:08> - General Chief Complaint: Nausea/Vomiting Stated Complaint: VOMITING/NAUSEA Time Seen by Provider: 12/03/19 22:05 Past History - Medical History Anemia: No Asthma: No Cancer: No Cardiac Disorders: No CVA: No COPD: No DVT: No Dementia: No Diabetes: No Dialysis: No GI Disorders: No Disorders: No HTN: No Hypercholesterolemia: No Kidney Stones: No Liver Disease: No Psychiatric Problems: No Seizures: No Thyroid Disease: No Lung CA: No - Surgical History Abdominal Surgery: No Appendectomy: No Cardiac Surgery: No Cholecystectomy: No Gastric Stapling: No GI Surgery: No Lung Surgery: No Neurologic Surgery: No - Immunization History Immunization Up to Date: No - Psycho-Social/Smoking History Smoking History: Never smoked Have you smoked in the past 12 months: No Number of Cigarettes Smoked Daily: 0 - Substance Abuse Hx (Audit-C & DAST Scrn) How often the patient has a drink containing alcohol: Never Score: In Men: 4 or > Positive; In Women: 3 or > Positive: 0 Screen Result (Pos requires Nsg. Audit-10AR): Negative <Anastasiya Gaxiola - Last Filed: 12/04/19 00:17> <Nova Pelayo - Last Filed: 12/05/19 13:08> - Medical History Allergies/Adverse Reactions: Allergies Allergy/AdvReac Type Severity Reaction Status Date / Time morphine AdvReac Verified 12/03/19 23:26 Home Medications: Ambulatory Orders Aspirin [Adult Aspirin] 81 mg PO DAILY 12/02/17 Famotidine [Pepcid] 20 mg PO BID 12/02/17 Sulfamethoxazole/Trimethoprim [Bactrim Ds Tablet] 1 each PO BID #14 tablet 12/05/17 Ibuprofen 600 mg PO Q6H #30 tablet 09/30/19 Mag Hydrox/Al Hydrox/Simeth [Mylanta Suspension -] 30 ml PO Q6H #1 bottle 09/30/19 Meclizine HCl [Antivert -] 25 mg PO TID #21 tablet 09/30/19 Ondansetron [Zofran Odt -] 4 mg SL TID #10 od.tablet 09/30/19 Nitrofurantoin Monohyd/M-Cryst [Macrobid -] 100 mg PO BID #14 capsule 12/04/19 Review of Systems - Review of Systems Constitutional: No: Chills, Fever, Weakness HEENTM: No: Blurred Vision, Double Vision Respiratory: No: Cough, Shortness of Breath, Productive cough Cardiac (ROS): No: Chest Pain, Lightheadedness, Palpitations ABD/GI: Yes: Nausea, Vomiting : Yes: Burning (mild burning with urination). No: Discharge Neurological: Yes: Headache. No: Weakness Hematologic/Lymphatic: No: Blood Clots, Swollen Glands <Anastasiya Gaxiola - Last Filed: 12/04/19 00:17> - Review of Systems Able to Perform ROS?: Yes : Yes: Burning, Dysuria Musculoskeletal: No: Back Pain Integumentary: No: Change in Color, Rash Neurological: No: Tingling Psychiatric: No: Anxiety, Depression All Other Systems: Reviewed and Negative <Nova Pelayo - Last Filed: 12/05/19 13:08> *Physical Exam - Vital Signs Last Vital Signs Temp Pulse Resp BP Pulse Ox 98 F 87 18 149/85 100 12/03/19 21:58 12/03/19 21:58 12/03/19 21:58 12/03/19 21:58 12/03/19 21:58 - Physical Exam General Appearance: Yes: Nourished, Appropriately Dressed HEENT: positive: EOMI. negative: Nasal Congestion Neck: positive: Trachea midline. negative: Decreased range of motion Respiratory/Chest: positive: Lungs Clear, Normal Breath Sounds. negative: Respiratory Distress Cardiovascular: positive: Regular Rhythm, Regular Rate, S1, S2. negative: Edema Gastrointestinal/Abdominal: positive: Soft, Increased Bowel Sounds. negative: Tender, Distended Musculoskeletal: negative: CVA Tenderness (R), CVA Tenderness (L) Extremity: positive: Normal Capillary Refill. negative: Cyanosis Neurologic: positive: Fully Oriented, Alert, Motor Strength 5/5. negative: Facial Droop, Sensory Deficit <Anastasiya Gaxiola - Last Filed: 12/04/19 00:17> - Vital Signs Last Vital Signs Temp Pulse Resp BP Pulse Ox 98 F 75 18 118/82 100 12/03/19 21:58 12/04/19 00:30 12/04/19 00:30 12/04/19 00:30 12/04/19 00:30 <Nova Pelayo - Last Filed: 12/05/19 13:08> Heart Score/ECG Review - ECG Intrepretation Comment:: Patients EKG normal sinus rhythm with sinus arrhythmia. Possible left atrial enlargement. Vent rate: 73 bpm TX interval 174ms QRS duration 80ms QT/QTc 388/427 ms 12/04/19 00:00 <Anastasiya Gaxiola - Last Filed: 12/04/19 00:17> ED Treatment Course - LABORATORY CBC & Chemistry Diagram: 12/03/19 23:05 12/03/19 23:00 <Anastasiya Gaxiola - Last Filed: 12/04/19 00:17> - LABORATORY CBC & Chemistry Diagram: 12/03/19 23:05 12/03/19 23:00 - ADDITIONAL ORDERS Additional order review: 12/03/19 23:05 RBC 4.04 MCV 99.8 H MCHC 35.8 RDW 12.7 MPV 9.9 Neutrophils % 74.5 D Lymphocytes % 18.5 D Monocytes % 5.0 Eosinophils % 1.2 Basophils % 0.8 - RADIOLOGY Radiology Studies Ordered: Category Date Time Status HEAD CT WITHOUT CONTRAST [CT] Stat CT Scan 12/03/19 23:18 Completed - Medications Given in the ED: ED Medications Discontinued Medications Generic Name Dose Route Start Last Admin Trade Name Freq PRN Reason Stop Dose Admin Acetaminophen 1,000 mg 12/03/19 23:18 12/03/19 23:32 Ofirmev Injection - IVPB 12/03/19 23:19 1,000 mg ONCE ONE Administration Al Hydroxide/Mg Hydroxide 30 ml 12/03/19 22:35 12/03/19 23:07 Mylanta Oral Suspension - PO 30 ml Q6H PRN Administration DYSPEPSIA Ondansetron HCl 4 mg 12/03/19 22:32 12/03/19 23:07 Zofran Injection IVPUSH 12/03/19 22:33 4 mg ONCE ONE Administration Sodium Chloride 1,000 ml 12/03/19 22:31 12/03/19 23:07 Normal Saline - IV 12/03/19 22:32 1,000 ml ONCE ONE Administration <Nova Pelayo - Last Filed: 12/05/19 13:08> Medical Decision Making - Medical Decision Making 12/03/19 23:15 This is a 39 y/o female with a PMH of gallstones presenting to the ED because of 4 episodes of NBNB emesis that started today after eating lunch. She is also complaining of a new headache that began yesterday afternoon. CMP to check electrolytes UA Serum preg Lipase 1L fluids Zofran Maalox IV acetaminophen for headache CT due to new onset headache to r/o CVA. Neuro exam without focal deficits. Will reassess after she receives medication 12/03/19 23:38 CMP Sodium 139 mmol/L (136-145) 12/03/19 23:00 Potassium 3.8 mmol/L (3.5-5.1) 12/03/19 23:00 Chloride 107 mmol/L (98-107) 12/03/19 23:00 Carbon Dioxide 26 mmol/L (21-32) 12/03/19 23:00 Anion Gap 6 MMOL/L (8-16) L 12/03/19 23:00 BUN 11.7 mg/dL (7-18) 12/03/19 23:00 Creatinine 0.7 mg/dL (0.55-1.3) 12/03/19 23:00 Est GFR (CKD-EPI)AfAm 125.61 12/03/19 23:00 Est GFR (CKD-EPI)NonAf 108.38 12/03/19 23:00 Random Glucose 99 mg/dL (74-106) 12/03/19 23:00 Calcium 9.0 mg/dL (8.5-10.1) 12/03/19 23:00 Total Bilirubin 1.4 mg/dL (0.2-1) H 12/03/19 23:00 AST 18 U/L (15-37) 12/03/19 23:00 ALT 22 U/L (13-61) 12/03/19 23:00 Alkaline Phosphatase 99 U/L (45-117) 12/03/19 23:00 Total Protein 8.0 g/dl (6.4-8.2) 12/03/19 23:00 Albumin 3.8 g/dl (3.4-5.0) 12/03/19 23:00 Lipase 101 U/L (73-393) 12/03/19 23:00 Serum , Qual Negative 12/03/19 23:00 CMP within normal limits, no electrolyte abnormalities Urine Test Results Urine Color Yellow 12/03/19 23:05 Urine Appearance Clear 12/03/19 23:05 Urine pH 7.0 (5.0-8.0) 12/03/19 23:05 Ur Specific [place] 1.009 (1.010-1.035) L 12/03/19 23:05 Urine Protein Negative (NEGATIVE) 12/03/19 23:05 Urine Glucose (UA) Negative (NEGATIVE) 12/03/19 23:05 Urine Ketones Negative (NEGATIVE) 12/03/19 23:05 Urine Blood 1+ (NEGATIVE) H 12/03/19 23:05 Urine Nitrite Negative (NEGATIVE) 12/03/19 23:05 Urine Bilirubin Negative (NEGATIVE) 12/03/19 23:05 Ur Leukocyte Esterase Trace (NEGATIVE) 12/03/19 23:05 Complaining of mild burning with urination. Trace leukocyte Esterase. She will be treated with Macrobid x1 week. 12/03/19 23:49 12/04/19 00:03 CT head non-contrast: Impression: No significant interval change or acute intracranial pathology is identified. Correlate clinically to determine further evaluation and follow-up Patient reevaluated. States improvement in nausea and headache. Vital signs are stable. 12/04/19 00:17 Patient reports that she has an appointment with her primary care doctor on Friday. We will print out copies of her labs and CT report to bring to him. <Natan Gaxiolaana - Last Filed: 12/04/19 00:17> Discharge <KhalidaAnastasiya - Last Filed: 12/04/19 00:17> - Discharge Information Problems reviewed: Yes - Admission No <Nova Pelayo - Last Filed: 12/05/19 13:08> - Discharge Information Clinical Impression/Diagnosis: UTI (urinary tract infection) Qualifiers: Urinary tract infection type: acute cystitis Headache Qualifiers: Headache type: unspecified Headache chronicity pattern: unspecified pattern Intractability: not intractable Qualified Code(s): R51 - Headache Condition: Improved Disposition: HOME - Additional Discharge Information Prescriptions: Nitrofurantoin Monohyd/M-Cryst [Macrobid -] 100 mg PO BID #14 capsule - Follow up/Referral Referrals: Thomas Fraga MD [Primary Care Provider] - - Patient Discharge Instructions Patient Printed Discharge Instructions: DI for Dehydration -- Adult, DI for U rinary Tract Infection (UTI), DI for Headache Additional Instructions: You were seen in the ED today for nausea/vomiting and a headache. We did a physical exam, labs, a head CT, and your nausea and headache were treated with Zofran and Acetaminophen. The head CT did not show any acute problems. You have a urinary tract infection. A prescription for antibiotics was sent to [facility]'s pharmacy for you. You can black pickler the prescription tomorrow morning. Make sure you take your antibiotics as prescribed. Follow-up with your primary care doctor within the next week. Please return to the ED with any new or worsening symptoms. Lo vieron hoy en el servicio de urgencias por nuseas / vmitos y dolor de jamison. Hicimos un examen fsico, laboratorios, traci tomografa computarizada de la jamison y jonathan nuseas y dolor de jamison fueron tratados con Zofran y acetaminofn. La TC de la jamison no mostr problemas agudos. Tiene traci infeccin del tracto urinario. Se le envi traci receta de antibiticos a la farmacia de . Puede recoger la receta maana por la maana. Asegrese de von jonathan antibiticos segn lo prescrito. Hoang un seguimiento con mckenzie mdico de atencin primaria dentro de la prxima semana. Regrese al servicio de urgencias con cualquier sntoma nuevo o que empeore. Print Language: MALTESE - Post Discharge Activity
[2019-12-03] MEDS ORDERED: SODIUM CHLORIDE 0.9% 500 ML INFUS.BAG IV ONE (22:31)
[2019-12-03] MEDS ORDERED: ONDANSETRON 4 MG/2 ML VIAL IVPUSH ONE (22:32)
[2019-12-03] MEDS ORDERED: MAG HYDROX/AL HYDROX/SIMETH 30 ML UNIT-DOSE CUP PO PRN (22:35)
[2019-12-03] MEDS ORDERED: MAG HYDROX/AL HYDROX/SIMETH 30 ML UNIT-DOSE CUP ONE (23:03)
[2019-12-03] MEDS ORDERED: ACETAMINOPHEN 1000 MG/100 ML VIAL (NON FORMULARY) IVPB ONE (23:18)
[2019-12-03] MEDS ORDERED: ACETAMINOPHEN INJECTION 100 ML IVPB ONE (23:28)
[2019-12-03 23:29] LABS: BASO % 0.8 % (0-2.0); EOS % 1.2 % (0-4.5); HEMATOCRIT 40.3 % (32.4-45.2); HEMOGLOBIN 14.4 GM/dL (10.7-15.3); LYMPH % 18.5 % (8-40); MCH 35.7 pg (25.7-33.7); MCHC 35.8 g/dl (32.0-36.0); MEAN CELL VOLUME 99.8 fl (80-96); MEAN PLT VOLUME 9.9 fl (7.5-11.1); NEUT % 74.5 % (42.8-82.8); PLATELET COUNT 222 K/MM3 (134-434); RBC 4.04 M/mm3 (3.60-5.2); RDW 12.7 % (11.6-15.6); WHITE BLOOD COUNT 8.5 K/mm3 (4.0-10.0)
[2019-12-03 23:32] LABS: EPI CELLS 11 /uL (0-25.1); HYALINE CASTS 0 /uL (0-3.1); URINE APPEARANCE CLEAR; URINE BACTERIA 1350 /uL (0-1359); URINE BILIRUBIN NEGATIVE (NEGATIVE); URINE COLOR YELLOW; URINE GLUCOSE (UA) NEGATIVE (NEGATIVE); URINE KETONE NEGATIVE (NEGATIVE); URINE LEUK ESTERASE TRACE (NEGATIVE); URINE NITRITE NEGATIVE (NEGATIVE); URINE PROTEIN NEGATIVE (NEGATIVE); URINE RBC 29 /uL (0-23.9); URINE UROBILINOGEN 0.2 mg/dL (0.2-1.0); URINE WBC 30 /uL (0-25.8)
[2019-12-03 23:33] LABS: ALBUMIN 3.8 g/dl (3.4-5.0); BILIRUBIN,TOTAL 1.4 mg/dL (0.2-1); BLOOD UREA NITROGEN 11.7 mg/dL (7-18); CREATININE 0.7 mg/dL (0.55-1.3); POTASSIUM 3.8 mmol/L (3.5-5.1)
--- NOTE | 2019-12-03 23:39 | PDOC ---
Documentation entered by Nicki Walsh SCRIBE, acting as scribe for Nova Pelayo MD. Nova Pelayo MD: This documentation has been prepared by the scribe, Nicki Walsh SCRIBE, under my direction and personally reviewed by me in its entirety. I confirm that the documentation accurately reflects all work, treatment, procedures, and medical decision making performed by me. Attending Attestation - Resident Resident Name: Anastasiya Gaxiola - ED Attending Attestation I have performed the following: I have examined & evaluated the patient, The case was reviewed & discussed with the resident, I agree w/resident's findings & plan, Exceptions are as noted - HPI HPI: 12/03/19 23:23 Patient is a 39 year old female with no significant past medical history who presents to the ED with headache and nausea/vomiting since this afternoon. Patient said her symptoms began after she ate her lunch, said to have 4 episodes of NBNB vomiting but that she can keep water down. Patient also described an on/off pain that she has been having in her central back along with left sided facial numbness/tingling. Patient denies: fever, chills, slurred speech, any vision changes, any alcohol intake. Allergies: Morphine PCP: Dr. Thomas Fraga - Physicial Exam PE: 12/03/19 23:24 General: Well appearing, awake and alert, NAD. HEENT: NCAT, PERRL, EOMI, clear conjunctiva, anicteric, moist mucus membranes, clear oropharynx, no oral lesions.. Neck: neck supple, FROM Resp: CTAB, normal and even respirations, no respiratory distress CVS: RRR, no murmurs, 2+ peripheral pulses throughout, no peripheral edema Abdomen: soft, NTND, no rebound or guarding. No CVAT. Back: nontender, normal inspection and ROM MSK: no edema, KING x4, ROM intact. No clubbing or cyanosis. normal bulk and to ne. Extremities: no calf tenderness Neuro: alert, oriented appropriately; no focal neurologic deficits Psych: Calm and cooperative Skin: warm and well perfused, cap refill <2 sec, normal color - Medical Decision Making 12/03/19 23:37 Vital Signs Temp Pulse Resp BP Pulse Ox 98 F 87 18 149/85 100 12/03/19 21:58 12/03/19 21:58 12/03/19 21:58 12/03/19 21:58 12/03/19 21:58 Vital signs reviewed within normal limits No fevers, no systemic findings Neurologically intact. Differential diagnosis includes gastroenteritis, dehydration, anemia, stress, migraine, tension headache, cluster headache. Clinically doubt CVA, mass or head bleed. Due to new headache, obtain CT head to evaluate for intracranial abnormalities Basic labs and lites Patient does have urinary symptoms, UA positive for WBCs and trace leuk esterase, follow-up urine culture, will treat empirically with oral antibiotics. Basic labs are within normal limits, LFTs and lipase are normal IV hydration, GI cocktail, Tylenol for headache and reassess 12/04/19 00:12 ct head unremarkable treating UTI with macrobid x 1 week return precautions DC stable condition hydraiton advised, rest f/u urine culture stress reduction Heart Score/ECG Review #1 ECG reviewed & interpreted by me at: 23:35 General ECG Interpretation: Sinus Rhythm, Normal Rate, Normal Intervals 12/03/19 23:38 EKG normal sinus rhythm 73 bpm, no interval abnormalities, narrow QRS, ST and T wave segments and morphology normal. Discharge - Discharge Information Problems reviewed: Yes Clinical Impression/Diagnosis: UTI (urinary tract infection), Headache - Additional Discharge Information Prescriptions: Nitrofurantoin Monohyd/M-Cryst [Macrobid -] 100 mg PO BID #14 capsule - Follow up/Referral Referrals: Thomas Fraga MD [Primary Care Provider] - - Patient Discharge Instructions Patient Printed Discharge Instructions: DI for Dehydration -- Adult, DI for Urinary Tract Infection (UTI), DI for Headache Print Language: ICELANDIC - Post Discharge Activity
[2019-12-04 00:31] VITALS: BP 118/82; PULSE 75
--- NOTE | 2019-12-04 11:35 | EKG ---
Test Reason : Blood Pressure : / mmHG Vent. Rate : 073 BPM Atrial Rate : 073 BPM P-R Int : 174 ms QRS Dur : 080 ms QT Int : 388 ms P-R-T Axes : 047 004 033 degrees QTc Int : 427 ms NORMAL SINUS RHYTHM WITH SINUS ARRHYTHMIA POSSIBLE LEFT ATRIAL ENLARGEMENT BORDERLINE ECG WHEN COMPARED WITH ECG OF 09-OCT-2019 23:40, CRITERIA FOR ANTERIOR INFARCT ARE NO LONGER PRESENT Confirmed by JOCELYN COLINDRES MD ([id number]) on 12/04/2019 11:34:43 AM Referred By: Confirmed By:JOCELYN COLINDRES MD
== END 2019-12-04 00:39 | disposition home or self-care (01) ==
LOC: JER 21:55
PROC: 3E033NZ Introduction of Analgesics, Hypnotics, Sedatives into Peripheral Vein, Percutaneous Approach (ICD-10-PCS; principal; 2019-12-03)
PROC: 3E033GC Introduction of Other Therapeutic Substance into Peripheral Vein, Percutaneous Approach (ICD-10-PCS; 2019-12-03)
DX: R51 Headache (principal); N30.00 Acute cystitis without hematuria
CPT/HCPCS: 36415; 70450-TC; 80053; 81003; 83690; 84703; 85025; 93005; 93010; 99285-25; J0131

== ENCOUNTER 2020-03-14 16:45 | Emergency (ER) | payer OTHER ==
[2020-03-14 16:56] VITALS: BP 129/83; PULSE 85; TEMP 98; BMI 27.4
--- OUTSIDE RECORDS SUMMARY | 2020-03-14 17:11 | XMS ---
:1980 Author Organization [facility] Care Team Providers Name Role Phone Gage Hdez MD Unavailable Unavailable Gage Hdez MD Unavailable Unavailable Gage Hdez MD Unavailable Unavailable Gage Hdez MD Unavailable Unavailable Gage Hdez MD Unavailable Unavailable Gage Hdez MD Unavailable Unavailable Gage Hdez MD Unavailable Unavailable Gage Hdez MD Unavailable Unavailable Naveed, Andres Unavailable [phone] Naveed, Andres Unavailable [phone] Menla, Hali Unavailable Unavailable Menla, Hali Unavailable Unavailable Menla, Hali Unavailable Unavailable Menla, Hali Unavailable Unavailable Menla, Hali Unavailable Unavailable Menla, Hali Unavailable Unavailable Jose Blandon Unavailable [phone] Coon, Ruchi Unavailable Unavailable Coon, Ruchi Unavailable Unavailable Coon, Ruchi Unavailable Unavailable Coon, Ruchi Unavailable Unavailable Coon, Ruchi Unavailable Unavailable Coon, Ruchi Unavailable Unavailable ZUNASSIGNED Unavailable Unavailable HALI HARPER Unavailable Unavailable AVERY KASSI KAMALJIT, KASSI Unavailable Unavailable Avery, Kassi Unavailable Unavailable Avery, Kassi Unavailable Unavailable Avery, Kassi Unavailable Unavailable Avery, Kassi Unavailable Unavailable [email or web address],, [id number] Unavailable Unavailable Re-disclosure Warning The records that you are about to access may contain information from federally- assisted alcohol or drug abuse programs. If such information is present, then the following federally mandated warning applies: This information has been disclosed to you from records protected by federal confidentiality rules (42 CFR part 2). The federal rules prohibit you from making any further disclosure of this information unless further disclosure is expressly permitted by the written consent of the person to whom it pertains or as otherwise permitted by 42 CFR part 2. A general authorization for the release of medical or other information is NOT sufficient for this purpose. The Federal rules restrict any use of the information to criminally investigate or prosecute any alcohol or drug abuse patient.The records that you are about to access may contain highly sensitive health information, the redisclosure of which is protected by Article 27-F of the [facility] Public Health law. If you continue you may haveaccess to information: Regarding HIV / AIDS; Provided by facilities licensed or operated by the [facility] Office of Mental Health; or Provided by the [facility] Office for People With Developmental Disabilities. If such information is present, then the following [facility] mandated warning applies: This information has been disclosed to you from confidential records which are protected by state law. State law prohibits you from making any further disclosure of this information without the specific written consent of the person to whom it pertains, or as otherwise permitted by law. Any unauthorized further disclosure in violation of state law may result in a fine or custodial sentence or both. A general authorization for the release of medical or other information is NOT sufficient authorization for further disclosure. Family History Family Member Family Member Family Member Date of Description Data Source(s) Name Gender Status Status Unknown Male Problem 11/05/2017 NEXTGEN ([facility] ([facility]) 12:00:00 AM [facility]) Unknown Male Problem 11/05/2017 NEXTGEN ([facility] (finding) 12:00:00 AM [facility] EDT Center) Encounters Encounter Providers Location Date Indications Data Source(s ) Outpatient Attender: H [facility] KASSI WHITESIDEA 0 [facility] KASSI 09:28:00 MARIAAdmitter: AM EDT KASSIANSELMO MARIReferrer: KASSI MARI [facility] n[facility] itter: 09:27:00 ZUNASSIGNEDRef AM EDT errer: [id number] [email or web address]@, Outpatient Admitter: [facility] [id number] [facility] ZUNASSIGNED@,R 12:00:00 eferrer: AM EDT [id number] ZUNASSIGNED@, Outpatient Attender: H [facility] KASSI WHITESIDEA 0 Medical Cente r KASSI 09:34:00 MARIAAdmitter: AM EDT KASSI MARIReferrer: KASSIANSELMO MARI [facility] Ce nter itter: 09:24:00 ZUNASSIGNEDRef AM EDT errer: [id number] ZUNASSIGNED@, Outpatient Admitter: [facility] [id number] [facility] ZUNASSIGNED@,R 12:00:00 eferrer: AM EDT [id number] ZUNASSIGNED@, Outpatient Attender: [facility] ZUNASSIGNEDAdm 0 Medical Ce nter itter: 03:37:00 ZUNASSIGNEDRef PM EDT errer: [id number] ZUNASSIGNED@, Outpatient Admitter: [facility] [id number] [facility] ZUNASSIGNED@,R 12:00:00 eferrer: AM EDT [id number] ZUNASSIGNED@, Outpatient Attender: [facility] Gage [address] [place] [address] Jeremy Hdez 09:19:00 MDAdmitter: AM EDT Gage Hdez MDReferrer: Gage Hdez MD Attender: [facility] ([place] [address] Demetrio Blandon 09:19:00 Medical AM EDT - Center) 0 09:19:00 AM EDT Outpatient [address]CW[address] ([address] 12:00:00 Medical AM EDT Practice PC) Outpatient [address] 05:36:00 PM EDT Outpatient Attender: H [facility] KASSI AVERY 0 Medical Cente r KASSI 04:26:00 MARIAAdmitter: PM EDT KASSIANSELMO MARIReferrer: KASSI MARI OutpatientOFFICE/OUT Attender: [facility] PATIENT VISIT, EST Kassi Avery 0 Pedro hs 04:26:00 Medical PM EDT - Center) 0 04:26:00 PM EDT Outpatient [address] 12:00:00 AM EDT Attender: [facility] Naveed [address] [place] [address] 04:38:00 Medical PM EDT - Center) 0 04:38:00 PM EDT Outpatient [address] 11:26:00 AM EDT Outpatient [address] 12:00:00 AM EDT Outpatient [address] 02:19:00 PM EDT Outpatient Attender: H [facility] KASSI AVERY 0 Medical Cente r KASSI 11:09:00 MARIAAdmitter: AM EDT KASSI MARIReferrer: KASSI MARI OutpatientOFFICE/OUT Attender: Hali [address] [facility] ([facility] PATIENT VISIT, EST Menla 0 Isaiah s 11:09:00 Medical AM EDT - Center) 0 11:09:00 AM EDT Outpatient [address] 12:00:00 AM EDT Attender: [facility] ([facility] Kassi Avery 0 [facility] 10:13:00 Medical AM EDT - Center) 0 10:13:00 AM EDT Outpatient [address] 09:23:00 AM EDT Outpatient Attender: H [facility] KASSI AVERY 0 Medical Cente r KASSI 09:04:00 MARIAAdmitter: AM EDT KASSI AVERY KASSI KAMALJITReferrer: KASSI AVERY KASSI KAMALJIT OutpatientWell Attender: [facility] NEXTGEN (S aint Visit, Kassi Avery 0 Demetrio Est,40-64years 09:04:00 Medical AM EDT - Center) 0 09:04:00 AM EDT Outpatient [address] 12:00:00 AM EDT Attender: [facility] Andres Naveed 0 [facility] 04:03:00 Medical PM EDT - Center) 0 04:03:00 PM EDT Outpatient Attender: [facility] KASSI AVERY 0 Medical Cente r KASSI 09:21:00 MARIAAdmitter: AM EDT KASSI AVERY KASSI MARIAReferrer: KASSI AVERY KASSI KAMALJIT OutpatientOFFICE/OUT Attender: 415 [facility] NEXT GEN ([facility] PATIENT VISIT, EST Kassi Avery 0 Pedro hs 09:21:00 Medical AM EDT - Center) 0 09:21:00 AM EDT Outpatient [address] 09:20:00 AM EDT Outpatient [address] 12:00:00 AM EDT Outpatient Attender: [facility] KASSI AVERY 0 Medical Cente r KASSI 04:06:00 MARIAAdmitter: PM EDT KASSI AVERY KASSI MARIAReferrer: KASSI AVERY KASSI KAMALJIT OutpatientOFFICE/OUT Attender: Hali [address] NEXTGEN ([facility] PATIENT VISIT, EST Menla 0 Isaiah s 04:06:00 Medical PM EDT - Center) 0 04:06:00 PM EDT Outpatient [address] 02:55:00 PM EDT Outpatient [address] 12:00:00 AM EDT Attender: [place] NEXTGEN (Sa int [facility] 0 Demetrio 09:22:00 Medical AM EDT - Center) 0 09:22:00 AM EDT Outpatient Attender: HALI Tidwell [facility] phs MENLA [address] [place] [address] MIKEAdmitter: 10:39:00 HALI JOHNSON AM EDT MIKEReferrer: HALI LAL OutpatientOFFICE/OUT Attender: Hali [address] [facility] ([facility] PATIENT VISIT, EST Menla 0 Isaiah s 10:39:00 Medical AM EDT - Center) 0 10:39:00 AM EDT Outpatient [address] 09:04:00 AM EDT Outpatient [address] 12:00:00 AM EDT Attender: Hali [address] [facility] (S aint Menla 0 Demetrio 02:50:00 Medical PM EDT - Center) 0 02:50:00 PM EDT [address] eCW[address] (S aint Office [facility] 0 Demetrio 12:00:00 Medical AM EDT Practice PC) [address] eCW1 (S aint Office [facility] 0 Demetrio 12:00:00 Medical AM EDT Practice PC) [facility] [address] eCW[address] ([facility] 0 Demetrio 12:00:00 Medical AM EDT Practice PC) Outpatient Attender: Yaw [facility] KASSI WHITESIDEA [address] [place] [address] [facility] 10:15:00 MARIAAdmitter: AM EDT KASSI MARIReferrer: KASSI MARI OutpatientOFFICE/OUT Attender: Hali [address] [facility] ([facility] PATIENT VISIT, EST Menla 0 Isaiah s 10:15:00 Medical AM EDT - Center) 0 10:15:00 AM EDT Outpatient [address] 10:12:00 AM EDT Outpatient [address] 12:00:00 AM EDT Outpatient Attender: H [facility] KASSI AVERY [facility] K[facility]SI 11:25:00 MARIAAdmitter: AM EDT KASSI AVERY KASSI MARIAReferrer: KASSI AVERY KASSI KAMALJIT OutpatientOFFICE/OUT Attender: Hali [address] NEXTGEN ([facility] PATIENT VISIT, EST Menla 0 Isaiah s 11:25:00 Medical AM EDT - Center) 0 11:25:00 AM EDT Outpatient [address] 11:24:00 AM EDT Outpatient [address] 12:00:00 AM EDT Outpatient [address] 11:15:00 AM EDT Outpatient Attender: HALI Tidwell [address] MIKEAdmitter: 09:42:00 HALI JOHNSON AM EDT MIKEReferrer: HALI LAL OutpatientOFFICE/OUT Attender: Hali 415 [facility] ([facility] PATIENT VISIT, EST Menla 0 Isaiah s 09:42:00 Medical AM EDT - Center) 0 09:42:00 AM EDT Outpatient [address] 12:00:00 AM EDT Outpatient Attender: HALI Tidwell [address] MIKEAdmitter: 03:17:00 HALI JOHNSON PM EDT MIKEReferrer: HALI LAL OutpatientOFFICE/OUT Attender: [facility] NEXT GEN ([facility] PATIENT VISIT, EST Kassi Avery 0 Pedro hs 03:17:00 Medical PM EDT - Center) 0 03:17:00 PM EDT Outpatient [address] 09:23:00 AM EDT Outpatient [address] 12:00:00 AM EDT Outpatient Attender: Yaw [address] Lemuel 12:23:00 MDAdmitter: PM EST Gage Hdez MDReferrer: Gage Hdez MD Attender: [facility] NEXTGEN (Sa int [place] 12:23:00 Medical PM EST - Center) 0 12:23:00 PM EST Attender: [facility] NEXTGEN ([facility] Kassi Avery 0 [facility] 09:12:00 Medical AM EST - Center) 0 09:12:00 AM EST [address] eCW[address] (S aint Office [address] 12:00:00 Medical AM EST Practice PC) Outpatient [address] 12:06:00 PM EST Outpatient Attender: HALI Tidwell [address] MIKEAdmitter: 10:14:00 HALI JOHNSON AM EST MIKEReferrer: HALI LAL OutpatientOFFICE/OUT Attender: [facility] NEXT GEN ([facility] PATIENT VISIT, EST Kassi Avery 0 Pedro hs 10:14:00 Medical AM EST - Center) 0 10:14:00 AM EST Outpatient [address] 12:00:00 AM EST Outpatient [address] 03:26:00 PM EST Outpatient Attender: HALI Tidwell [address] MIKEAdmitter: 11:38:00 HALI JOHNSON AM EST MIKEReferrer: HALI LAL OutpatientOFFICE/OUT Attender: [facility] NEXT GEN ([facility] PATIENT VISIT, EST Kassi Avery 0 Pedro hs 11:38:00 Medical AM EST - Center) 0 11:38:00 AM EST Outpatient [address] 12:00:00 AM EST Attender: Hali [facility] NEXTGEN (S aint [address] 11:42:00 Medical AM EST - Center) 0 11:42:00 AM EST Outpatient Attender: HALI Tidwell [address] MIKEAdmitter: 02:12:00 HALI MENEITAN PM EST MIKEReferrer: HALI LAL OutpatientOFFICE/OUT Attender: [facility] NEXT GEN ([facility] PATIENT VISIT, EST Kassianselmo Avery 9 Pedro hs 02:12:00 Medical PM EST - Center) 9 02:12:00 PM EST Outpatient [address] 09:50:00 AM EST Outpatient [address] 12:00:00 AM EST Outpatient [address] 01:21:00 PM EST Outpatient Attender: HALI H [address] MIKEAdmitter: 09:21:00 HALI JOHNSON AM EST MIKEReferrer: HALI LAL OutpatientOFFICE/OUT Attender: [facility] NEXT GEN ([facility] PATIENT VISIT, EST Kassi Avery 9 Pedro hs 09:21:00 Medical AM EST - Center) 9 09:21:00 AM EST Outpatient [address] 12:00:00 AM EST Attender: Hali [facility] NEXTGEN (S aint Menla 9 Demetrio 04:47:00 Medical PM EST - Center) 9 04:47:00 PM EST Attender: Hali [address] [facility] NEXTGEN (S aint Menla 9 Demetrio 02:27:00 Medical PM EST - Center) 9 02:27:00 PM EST Outpatient Attender: H [facility] KASSI AVERY [address] [place] [address] Cente r KASSI 12:21:00 MARIAAdmitter: PM EDT KASSI AVERY KASSI MARIAReferrer: KASSI AVERY KASSI KAMALJIT OutpatientOFFICE/OUT Attender: [facility] NEXT GEN ([facility] PATIENT VISIT, EST Kassi Whitesidea 9 Pedro hs 12:21:00 Medical PM EDT - Center) 9 12:21:00 PM EDT Outpatient [address] 12:19:00 PM EDT Outpatient [address] 12:00:00 AM EDT [address] 12:00:00 AM EDT - 8 12:00:00 AM EDT Medications Medication Brand Start Product Dose Route [facility] Indications Reaction Description Data Name Date Form Instructions Instructions Source(s) Fluconazole flucon ORAL active take 1 NEXTGEN 150 MG Oral azole 2019 {tabl tablet by ( [facility] Tablet 150 mg 12:00: et} oral route [facility] fluconazole tablet 00 AM once Medic al 150 mg EDT Center) tablet Cephalexin Keflex ORAL active cephalex in NEXTGEN 500 MG Oral 500 mg 2019 {caps 500 MG Ora l ([facility] Capsule capsul 12:00: ule} Capsule Pedro hs [Keflex] e 00 AM [Keflex] Medica l Keflex 500 EDT Center) mg capsule Sulfamethox Bactri ORAL active sulfame thoxa NEXTGEN azole 800 m DS 2019 {tabl zole 800 MG (S aint MG / 800 12:00: et} / Demetrio Trimethopri mg-160 00 AM trimethopr im Medical m 160 MG mg EDT 160 MG Oral Cent er) Oral Tablet tablet Tablet [Bactrim] [Bactrim] Bactrim DS 800 mg-160 mg tablet Famotidine famoti ORAL active take 1 N EXTGEN 40 MG Oral dine 2019 {tabl tablet by (Sa int Tablet 40 mg 12:00: et} oral route Roberto phs famotidine tablet 00 AM every day a t Medical 40 mg EDT bedtime Center) tablet Acetaminoph Mapap ORAL active acetamin ophe NEXTGEN en 500 MG (aceta 2020 {caps n 500 MG (Sa int Oral minoph 12:00: ule} Oral Capsule Trae [facility] Capsule en) 00 AM [Mapap] Medical [Mapap] 500 mg EDT Center) Mapap capsul (acetaminop e hen) 500 mg capsule Loratadine lorata ORAL active take 1 N EXTGEN 10 MG Oral dine 2019 {tabl tablet by (Sa int Tablet 10 mg 12:00: et} oral route Roberto phs loratadine tablet 00 AM every day M edical 10 mg EDT Center) tablet pantoprazol pantop 1.00 ORAL complet take 1 NEXTGEN e 40 MG razole 2019 {tbl} ed tablet by (Mayito nt Delayed 40 mg 12:00: oral route Trae [facility]ph[facility] Release tablet 00 AM every day Medi gael Oral Tablet ,delay EDT Center ) pantoprazol ed e 40 mg releas tablet,heidy e yed release Medication administered onsite Famotidine 20 MG famotidine 20 09/29/2019 1.00 ORAL complete d take 1 NEXTGEN Oral Tablet mg tablet 12:00:00 AM {tbl} tablet by ( famotidine 20 mg EDT oral rou te Demetrio tablet 2 times Medical every day Center) benzonatate 200 benzonatate 09/20/2019 1.00 ORAL completed take 1 NEXTGEN MG Oral Capsule 200 mg 12:00:00 AM {capsu capsule by ([facility] benzonatate 200 capsule EDT le} oral r oute Demetrio mg capsule 3 times Medica l every day Center) as needed for cough Azithromycin 250 azithromycin 09/02/2019 2.00 ORAL completed take 2 NEXTGEN MG Oral Tablet 250 mg tablet 12:00:00 AM {tbl} tablet by ( azithromycin 250 EDT oral rou te Demetrio mg tablet every day Medic al for 1 day Center) then 1 tablet (250 mg) by oral route once daily for 4 days benzonatate 200 benzonatate 09/02/2019 1.00 ORAL completed take 1 NEXTGEN MG Oral Capsule 200 mg 12:00:00 AM {capsu capsule by ( benzonatate 200 capsule EDT le} oral r oute Demetrio mg capsule 3 times Medica l every day Center) as needed for cough Guaifenesin 20 Tussin 100 08/20/2019 10.00 ORAL completed take 10 NEXTGEN MG/ML Oral mg/5 mL oral 12:00:00 AM mL milliliter ([facility] Solution Tussin liquid EDT by oral Demetrio 100 mg/5 mL oral route Me dical liquid every 4 Center) hours as needed Loratadine 10 MG loratadine 10 08/20/2019 1.00 ORAL complete d take 1 NEXTGEN Oral Tablet mg tablet 12:00:00 AM {tbl} tablet by ( loratadine 10 mg EDT oral rou te Demetrio tablet every day Medical Center) Acetaminophen Mapap 08/20/2019 2.00 ORAL completed Acetaminoph NEXTGEN 500 MG Oral (acetaminophe 12:00:00 AM {capsu en 500 MG ([facility] Capsule [Mapap] n) 500 mg EDT le} Oral Demetrio Mapap capsule Capsule Medical (acetaminophen) [Mapap] C enter) 500 mg capsule nabumetone 500 nabumetone 08/04/2019 1.00 ORAL active take 1 NEXTGEN MG Oral Tablet 500 mg tablet 12:00:00 AM {table tablet by ([facility] nabumetone 500 EDT t} oral route Demetrio mg tablet 2 times Medical every day Center) NITROFURANTOIN, Macrobid 100 07/19/2019 1.00 ORAL completed NITROFURANT NEXTGEN MACROCRYSTALS 25 mg capsule 12:00:00 AM {capsu OIN, (Saint MG / EST le} MACROCRYSTA Demetrio Nitrofurantoin, LS 25 MG / Medical Monohydrate 75 Nitrofuran t Center) MG Oral Capsule oin, [Macrobid] Monohydrate Macrobid 100 mg 75 MG Ora l capsule Capsule [Macrobid] Meclizine meclizine 25 07/05/2019 1.00 ORAL active take 1 NEXTGEN Hydrochloride 25 mg tablet 12:00:00 AM {table tablet by ([facility] MG Oral Tablet EST t} oral route Demetrio meclizine 25 mg 3 times M edical tablet every day Center) as needed Calcium Calcium 500 05/11/2019 completed take one NEXTGEN Carbonate 1250 mg (1,250 mg) 12:00:00 AM tablet once ([facility] MG / + D3 125 unit EST a day Pedro hs Cholecalciferol tablet everyda yt Medical 125 UNT Oral Center) Tablet Calcium 500 mg (1,250 mg) + D3 125 unit tablet Medication administered onsite Phenazopyridine Pyridium 05/11/2019 1.00 ORAL completed Phenazopyridine NEXTGEN hydrochloride 200 mg 12:00:00 AM {tbl} h ydrochloride ([facility] 200 MG Oral tablet EST 200 MG Oral Demetrio Tablet Tablet Medical [Pyridium] [Pyridium] [place] [address]) Pyridium 200 mg tablet Cyclobenzaprine cyclobenz 04/21/2019 1 ORAL completed take 1 tablet by NEXTGEN hydrochloride 5 aprine 5 12:00:00 AM {tbl} oral route 2 (Saint MG Oral Tablet mg tablet EST times every day Demetrio cyclobenzaprine Medi gael 5 mg tablet Center) Naproxen 500 MG naproxen 04/21/2019 1.00 ORAL completed take 1 tablet by NEXTGEN Oral Tablet 500 mg 12:00:00 AM {tbl} ora l route 2 ([facility] naproxen 500 mg tablet EST times e very day Demetrio tablet with food Medical Center) Acetic Acid 20 acetic 01/28/2019 completed apply 4drops to NEXTGEN MG/ML Otic acid 2 % 12:00:00 AM lef t ear for ([facility] Solution acetic ear EDT 5-7days e very Demetrio acid 2 % ear solution 8hrs Med ical solution Center) Ibuprofen 400 MG ibuprofen 01/28/2019 1.00 ORAL completed take 1 tablet by NEXTGEN Oral Tablet 400 mg 12:00:00 AM {tbl} ora l route ([facility] ibuprofen 400 mg tablet EDT every 4 - 6 Demetrio tablet hours as needed Me dical Center) benzonatate 200 benzonata 10/15/2018 1.00 ORAL completed take 1 capsule NEXTGEN MG Oral Capsule te 200 mg 12:00:00 AM {capsu by oral route 3 ([facility] benzonatate 200 capsule EDT le} times every day Demetrio mg capsule as needed for Medical cough Center) Magnesium Milk of 08/04/2018 completed t arabella 15mls twice NEXTGEN Hydroxide 80 [place] 12:00:00 AM a day follow by ([facility] MG/ML Oral 400 mg/5 EDT 8ounces of water Demetrio Suspension Milk mL oral as nee ded [facility] of [place] 400 suspensio Center) mg/5 mL oral n suspension NITROFURANTOIN, nitrofura 04/09/2018 1 ORAL completed take 1 capsule NEXTGEN MACROCRYSTALS 50 ntoin 12:00:00 AM {capsu by oral route ([facility] MG Oral Capsule macrocrys EST le} ever y hour with Demetrio nitrofurantoin elham 50 mg food Medical macrocrystal 50 capsule C enter) mg capsule Polymyxin B polymyxin 04/09/2018 1.00 OPHTH completed instill 1 drop NEXTGEN 55195 UNT/ML / B sulfate 12:00:00 AM drop ALMIC by ophthalmic ([facility] Trimethoprim 1 10,000 EST route e very 6 Demetrio MG/ML Ophthalmic unit-trim chris rs into Medical Solution ethoprim affected eye (s) Center) polymyxin B 1 mg/mL sulfate 10,000 eye drops unit-trimethopri m 1 mg/mL eye drops Calcium Calcium 04/03/2018 completed mono e one tablet NEXTGEN Carbonate 1250 500 mg 12:00:00 AM o nce a day ([facility] MG / (1,250 EST everydayt Demetrio Cholecalciferol mg) + D3 Medical 125 UNT Oral [address]) Tablet Calcium tablet 500 mg (1,250 mg) + D3 125 unit tablet Omeprazole 20 MG omeprazol 01/30/2018 1.00 ORAL completed take 1 capsule NEXTGEN Delayed Release e 20 mg 12:00:00 AM {capsu by oral route ([facility] Oral Capsule capsule,d EDT le} every d ay before [facility] omeprazole 20 mg elayed a meal Medical capsule,delayed release C enter) release Ciprofloxacin Cipro 250 12/03/2017 completed Ciprofloxacin NEXTGEN 250 MG Oral mg tablet 12:00:00 AM 2 50 MG Oral (Saint Tablet [Cipro] EDT Tablet [Ci pro] [facility] Cipro 250 mg Medical tablet [place]) Loratadine 10 MG loratadin 08/15/2015 1.00 ORAL completed take 1 tablet by NEXTGEN Oral Tablet e 10 mg 12:00:00 AM {tbl} or al route ([facility] loratadine 10 mg tablet EDT every day [facility]) Acetaminophen Mapap 03/14/2015 2.00 ORAL completed Acetaminophen NEXTGEN 500 MG Oral (acetamin 12:00:00 AM {capsu 500 MG Oral ([facility] Capsule [Mapap] ophen) EDT le} Capsule [Mapap] Demetrio Mapap 500 mg Medical (acetaminophen) capsule C enter) 500 mg capsule Insurance Providers Payer name Policy type Policy ID Covered Covered green party's Policy P chavo / Coverage green party ID relationship to [employer] ormation type douglas JOHANNA [id number] SP [id number] 500 ESSENTIAL PLAN 3 4 O JOHANNA O [id number] 500 ESSENTIALS-[employer] MMERCIAL [facility] [id number] SP [id number] 500 ESSENTIAL PLAN 3 4 JOHANNA O [id number] 500 ESSENTIALS-CO MMERCIAL Problems, Conditions, and Diagnoses Code Display Name Description Problem Type Effective Data Dates Source(s) I51.7 [id number] Right ventricular Problem 07/19/2019 eCW1 (S aint enlargement 12:00:00 AM [facility]) I51.7 [id number] Right ventricular Problem 07/19/2019 eCW1 (S aint enlargement 12:00:00 AM [facility]) Z23 Encounter for ENCOUNTER FOR Diagnosis 03/01/2020 [facility] immunization IMMUNIZATION 09:34:00 AM [facility] R10.30 Lower abdominal LOWER ABDOMINAL Diagnosis 03/01/2020 Patti t pain, unspecified PAIN, UNSPECIFIED 09:34:00 AM [facility] N39.0 Urinary tract URINARY TRACT Diagnosis 03/01/2020 infection, site not INFECTION, SITE NOT 09:34:0 0 AM [facility] specified [facility] R07.9 Chest pain, CHEST PAIN, Diagnosis 02/22/2020 [facility] unspecified UNSPECIFIED 09:19:00 AM [facility] Z51.89 Encounter for other ENCOUNTER FOR OTHER Diagnosis [facility] specified aftercare SPECIFIED AFTERCARE 04:26:0 0 PM [facility] Z71.82 Exercise counseling EXERCISE COUNSELING Diagnosis 020 [facility] 11:09:00 AM [facility] Z71.3 Dietary counseling DIETARY COUNSELING Diagnosis 0 [facility] and surveillance AND SURVEILLANCE 11:09:00 AM [facility] Z68.29 Body mass index BODY MASS INDEX Diagnosis 01/18/2020 Patti t (BMI) 29.0-29.9, (BMI) 29.0-29.9, 11:09:00 AM [facility] adult ADULT [facility] Z11.4 Encounter for ENCOUNTER FOR Diagnosis 12/29/2019 screening for human SCREENING FOR HUMAN 09:04:0 0 AM Demetrio immunodeficiency IMMUNODEFICIENCY EDT Ia dical virus [HIV] VIRUS Center Z20.828 Contact with and CONTACT W AND Diagnosis 12/29/2019 (suspected) exposure EXPOSURE TO OTH 09:04:00 A Katiana Atkinson to other viral VIRAL COMMUNICABLE EDT Ia dical communicable DISEASES Center diseases R92.2 Inconclusive INCONCLUSIVE Diagnosis 12/29/2019 mammogram MAMMOGRAM 09:04:00 AM [facility] Z00.01 Encounter for ENCOUNTER FOR Diagnosis 12/29/2019 general adult GENERAL ADULT 09:04:00 AM [facility] medical examination MEDICAL EXAM W EDT M edical with abnormal ABNORMAL FINDINGS Cent er findings Z12.39 Encounter for other ENCOUNTER FOR OTH Diagnosis 0 [facility] screening for SCREENING FOR 09:21:00 AM [facility] malignant neoplasm MALIGNANT NEOPLASM T Medical of breast OF BREAST Center F32.9 Major depressive MAJOR DEPRESSIVE Diagnosis 12/06/2019 Sa int disorder, single DISORDER, SINGLE 09:21:00 AM [facility] episode, unspecified EPISODE, UNSPECIFIED [facility] R51 Headache HEADACHE Diagnosis 12/06/2019 [facility] 09:21:00 AM [facility] J06.9 Acute upper ACUTE UPPER Diagnosis 09/29/2019 [facility] respiratory RESPIRATORY 04:06:00 PM [facility] infection, INFECTION, EDT Medical unspecified UNSPECIFIED Center B34.9 Viral infection, VIRAL INFECTION, Diagnosis 09/20/2019 int unspecified UNSPECIFIED 10:39:00 AM [facility] R00.1 Bradycardia, BRADYCARDIA, Diagnosis 09/09/2019 [facility] unspecified UNSPECIFIED 10:15:00 AM [facility] Z68.30 Body mass index BODY MASS INDEX Diagnosis 08/20/2019 Patti t (BMI) 30.0-30.9, (BMI) 30.0-30.9, 09:42:00 AM [facility] adult ADULT [facility] R05 Cough COUGH Diagnosis 08/20/2019 [facility] 09:42:00 AM [facility] R00.2 Palpitations PALPITATIONS Diagnosis 07/20/2019 [facility] 12:23:00 PM [facility] K58.1 Irritable bowel IRRITABLE BOWEL Diagnosis 07/16/2019 Patti t syndrome with SYNDROME WITH 10:14:00 AM [facility] constipation CONSTIPATION [facility] R30.0 Dysuria DYSURIA Diagnosis 07/16/2019 [facility] 10:14:00 AM [facility] R42 Dizziness and DIZZINESS AND Diagnosis 07/05/2019 [facility] giddiness GIDDINESS 11:38:00 AM [facility] M54.2 Cervicalgia CERVICALGIA Diagnosis 05/11/2019 [facility] 02:12:00 PM [facility] Z68.31 Body mass index BODY MASS INDEX Diagnosis 01/28/2019 Patti t (BMI) 31.0-31.9, (BMI) 31.0-31.9, 12:21:00 PM [facility] adult ADULT [facility] H60.90 Unspecified otitis UNSPECIFIED OTITIS Diagnosis 9 [facility] externa, unspecified EXTERNA, UNSPECIFIED 12:21 :00 PM [facility] ear EAR [facility] Surgeries/Procedures Procedure Description Date Indications Data Source(s) OFFICE/OUTPATIENT VISIT, 2020 NEX TGEN ([facility] EST 12:00:00 AM EDT [facility] - 2020 Center) 12:00:00 AM EDT OFFICE/OUTPATIENT VISIT, 01/18/2020 NEX TGEN ([facility] EST 12:00:00 AM EDT [facility] - 01/18/2020 [place]) 12:00:00 AM EDT Well Visit, 12/29/2019 NEXTGEN ([facility] Est,40-64years 12:00:00 AM EDT [facility] dical - 12/29/2019 [place]) 12:00:00 AM EDT ROUTINE [facility]CT[facility] 12[facility]29[facility] 12:00:00 AM EDT [facility] - 12/29/2019 [place]) 12:00:00 AM EDT OFFICE/OUTPATIENT VISIT, 12/06/2019 NEX TGEN ([facility] EST 12:00:00 AM EDT [facility] - 12/06/2019 [place]) 12:00:00 AM EDT OFFICE/OUTPATIENT VISIT, 09/29/2019 NEX TGEN ([facility] EST 12:00:00 AM EDT [facility] - 09/29/2019 [place]) 12:00:00 AM EDT OFFICE/OUTPATIENT VISIT, 09/20/2019 NEX TGEN ([facility] [place] 12:00:00 AM EDT PHYSICIAN TELEPHONE 09/16/2019 eCW1 (Sa int [facility] EVALUATION 11-20 MIN 12:00:00 AM EDT [facility]) OFFICE/OUTPATIENT VISIT, 09/09/2019 NEX TGEN ([facility] [place] 12:00:00 AM EDT OFFICE/OUTPATIENT VISIT, 09/02/2019 NEX TGEN ([facility] EST 12:00:[facility] 09/02/2019 [place]) 12:00:00 AM EDT OFFICE/OUTPATIENT VISIT, 08/20/2019 NEX TGEN ([facility] EST 12:00:00 AM EDT [facility] - 08/20/2019 [place]) 12:00:00 AM EDT OFFICE/OUTPATIENT VISIT, 08/04/2019 NEX TGEN ([facility] EST 12:00:00 AM EDT [facility] - 08/04/2019 [place]) 12:00:00 AM EDT ECG ROUTINE ECG W/LEAST 07/19/2019 eCW1 ([facility] 12 LDS W/I&R 12:00:00 AM EST [facility]) XTRNL ECG < 48 HR RECORD 07/19/2019 eCW 1 ([facility] SCAN STOR W/PHY R&I 12:00:00 AM EST [facility]) OFFICE/OUTPATIENT VISIT, 07/16/2019 NEX TGEN ([facility] EST 12:00:00 AM EST [facility] - 07/16/2019 [place]) 12:00:00 AM EST OFFICE/OUTPATIENT VISIT, 07/05/2019 NEX TGEN ([facility] EST 12:00:00 AM [facility] 07/05/2019 [place]) 12:00:00 AM EST OFFICE/OUTPATIENT VISIT, 05/11/2019 NEX TGEN ([facility] EST 12:00:00 AM [facility] - 05/11/2019 Center) 12:00:00 AM EST OFFICE/OUTPATIENT VISIT, 04/21/2019 NEX TGEN ([facility] EST 12:00:00 AM EST [facility] - 04/21/2019 [place]) 12:00:00 AM EST OFFICE/OUTPATIENT VISIT, 01/28/2019 NEX TGEN ([facility] EST 12:00:00 [facility] 01/28/2019 [place]) 12:00:00 AM EDT Results ID Date Data Source Urinalysis.[id number] 03/01/2020 01:03:00 PM EDT [facility] 0 Name Value Range Interpretation Description Data Sup porting Code Source(s) Document(s ) Glucose NEGATIVE <content [facility] [Mass/volume] styleCode="Rohit Demetrio in Urine by d">Urine Medical Test strip Glucose Center </content>NEGA TIVE MG/DL<content styleCode="Estelita lics"> (NEGATIVE MG/DL)</conten t> Color of Urine YELLOW <content [facility] styleCode="Rohit Demetrio d">Color, Medical Urine Center </content>YELL OW <content styleCode="Estelita lics"> (YELLOW )</content> UNK CLEAR <content [facility] styleCode="Rohit Demetrio d">Urine Medical Clarity Center </content>Sl CLOUDY <content styleCode="Estelita lics"> (CLEAR )</content> UNK NEGATIVE <content [facility] styleCode="Rohit Demetrio d">Urine Medical Bilirubin Center </content>NEGA TIVE <content styleCode="Estelita lics"> (NEGATIVE )</content> Ketones NEGATIVE <content [facility] [Mass/volume] styleCode="Rohit Demetrio in Urine by d">Urine Medical Test strip Ketone Center </content>NEGA TIVE MG/DL<content styleCode="Estelita lics"> (NEGATIVE MG/DL)</conten t> Protein NEGATIVE <content [facility] [Mass/volume] styleCode="Rohit Demetrio in Urine by d">Urine Medical Test strip Protein Center </content>NEGA TIVE MG/DL<content styleCode="Estelita lics"> (NEGATIVE MG/DL)</conten t> Urobilinogen 0.2-1.0 <content [facility] [Units/volume] styleCode="Rohit Demetrio in Urine by d">Urine Medical Test strip Urobilinogen Center </content>0.2 MG/DL<content styleCode="Estelita lics"> (0.2-1.0 MG/DL)</conten t> pH of Urine by 4.5-8.0 <content [facility] Test strip styleCode="Rohit Demetrio d">Urine pH Medical </content>6.0 Center <content styleCode="Estelita lics"> (4.5-8.0 )</content> Hemoglobin NEGATIVE <content [facility] [Presence] in styleCode="Rohit Demetrio Urine by Test d">Urine Blood Medical strip </content>NEGA Center TIVE <content styleCode="Estelita lics"> (NEGATIVE )</content> Specific 1.015-1.02 <content [facility] gravity of 5 styleCode="Rohit Demetrio Urine by Test d">Urine Medical strip Specific Center [place] </content>1.02 5 <content styleCode="Estelita lics"> (1.015-1.025 )</content> Nitrite NEGATIVE <content [Presence] in styleCode="Rohit Atkinson Urine by Test d">Urine Medical strip Nitrite Center </content>POSI TIVE <content styleCode="Estelita lics"> (NEGATIVE )</content> UNK 0-3 <content [facility] styleCode="Rohit Colons d">Urine White Medical Blood Cell Center </content>0-3 HPF<content styleCode="Estelita lics"> (0-3 HPF)</content> Leukocyte NEGATIVE <content [facility] esterase styleCode="Rohit Atkinson [Presence] in d">Urine Medical Urine by Test Leukocyte Center strip </content>NEGA TIVE <content styleCode="Estelita lics"> (NEGATIVE )</content> UNK 0-3 <content [facility] styleCode="Rohit Colons d">Urine Red Medical Blood Cell Center </content>0-3 HPF<content styleCode="Estelita lics"> (0-3 HPF)</content> UNK NONE SEEN <content [facility] styleCode="Rohit Colons d">Yeast Cell Medical </content>FEW Center HPF<content styleCode="Estelita lics"> (NONE SEEN HPF)</content> UNK NONE SEEN <content [facility] styleCode="Rohit Colons d">Epithelial Medical Cell Center </content>2-5 HPF<content styleCode="Estelita lics"> (NONE SEEN HPF)</content> UNK NEGATIVE <content [facility] styleCode="Rohit Colons d">Urine Medical Bacteria Center </content>MODE RATE HPF<content styleCode="Estelita lics"> (NEGATIVE HPF)</content> ID Date Data Source Microbiology.[id number] 03/01/2020 01:03:00 PM EDT [facility] 400 Name Value Range Interpretation Code Description Data Paula rce(s) Supporting Document(s ) UNK <item><content [facility] styleCode="Bold"> Medical Cent er Culture Report </content>
<t able><tbody><tr>< td>Specimen Number:</td><td>[id number]</td></tr ><tr><td>Sample Collection Date/Time: </td><td> 0 1:03 PM</td></tr><tr>< td>Specimen Source:</td><td>U RINE BLADDER</td></tr> <tr><td>Urine Culture:</td><td> Collection Plate Date: 03/01/2020 14:21 </td></tr><tr><td >Culture Status:</td><td>P reliminary </td></tr><tr><td >Culture Report:</td><td>C ulture in progress </td></tr></tbody ></table></item> UNK <item><content [facility] styleCode="Bold"> Medical [facility] er Culture Status </content>
<t able><tbody><tr>< td>Specimen Number:</td><td>[id number]</td></tr ><tr><td>Sample Collection Date/Time: </td><td> 0 1:03 PM</td></tr><tr>< td>Specimen Source:</td><td>U RINE BLADDER</td></tr> <tr><td>Culture Status:</td><td>P reliminary </td></tr><tr><td >Culture Report:</td><td>C ulture in progress </td></tr><tr><td >Urine Culture:</td><td> Collection Plate Date: 03/01/2020 14:21 </td></tr></tbody ></table></item> ID Date Data Source ECG [place] 02/07/2020 02:06:18 AM EDT eCW1 ([facility]) Name Value Range Interpretation Code Description Data Paula rce(s) Supporting Document(s ) ECG [place] eCW1 ([facility]) ID Date Data Source Microbiology.[id number] 01/18/2020 12:10:00 PM EDT [facility] 400 Name Value Range Interpretation Code Description Data Paula rce(s) Supporting Document(s ) UNK <item><content [facility] styleCode="Bold"> Medical Cent er Culture Report </content>
<t able><tbody><tr>< td>Specimen Number:</td><td>[id number]</td></tr ><tr><td>Sample Collection Date/Time: </td><td> 0 12:10 PM</td></tr><tr>< td>Specimen Source:</td><td>U RINE BLADDER</td></tr> <tr><td>Urine Culture:</td><td> Collection Plate Date: 01/18/2020 14:42 </td></tr><tr><td >Culture Status:</td><td>F inal </td></tr><tr><td >Culture Report:</td><td>C ulture in progress </td></tr><tr><td >[place] Count Urine:</td><td>>1 00,000 CFU/ML </td></tr><tr><td >Preliminary 1:</td><td>LIGHT LACTOSE INDUSTRIAL ENGINEERING ANALYST </td></tr><tr><td >Organism 1:</td><td>ESCHER ICHIA COLI </td></tr></tbody ></table>
<ta ble border="2"><tbody ><tr><td></td><td >1</td></tr><tr>< td>Comment</td><t d></td></tr><tr>< td>Result Value</td><td>ESC HERICHIA COLI </td></tr><tr><td >Result Status</td><td>Fi nal Result</td></tr>< tr><td>AMPICILLIN </td><td><=8 S</td></tr><tr><t d>AMPICILLIN SULBACTAM</td><td ><=4/2 S</td></tr><tr><t d>AZTREONAM</td>< td><=4 S</td></tr><tr><t d>CEFAZOLIN</td>< td><=2 S</td></tr><tr><t d>CEFOTAXIME-ESBL </td><td><= 1 ^N</td></tr><tr>< td>CEFOXITIN</td> <td><= 8 S</td></tr><tr><t d>CEFTAZIDIME</td ><td><=1 S</td></tr><tr><t d>CEFTRIAXONE</td ><td><=1 S</td></tr><tr><t d>CEFUROXIME</td> <td><=4 S</td></tr><tr><t d>CIPROFLOXACIN</ td><td>> 2 R</td></tr><tr><t d>ERTAPENEM</td>< td><=0.5 S</td></tr><tr><t d>GENTAMICIN</td> <td><= 4 S</td></tr><tr><t d>LEVOFLOXACIN</t d><td>> 4 R</td></tr><tr><t d>MEROPENEM</td>< td><= 1 S</td></tr><tr><t d>NITROFURANTOIN< /td><td><= 32 S</td></tr><tr><t d>PIPERACILLIN/TA ZOBACTAM</td><td> <= 16 S</td></tr><tr><t d>TETRACYCLINE</t d><td><= 4 S</td></tr><tr><t d>TRIMETHOPRIM/OLGUIN LFAMETHOXAZOLE</t d><td><=2/38 S</td></tr></tbod y></table></item> UNK <item><content [facility] styleCode="Bold"> Medical Cent er Culture Status </content>
<t able><tbody><tr>< td>Specimen Number:</td><td>[id number]</td></tr ><tr><td>Sample Collection Date/Time: </td><td> 0 12:10 PM</td></tr><tr>< td>Specimen Source:</td><td>U RINE BLADDER</td></tr> <tr><td>[place] Count Urine:</td><td>>1 00,000 CFU/ML </td></tr><tr><td >Preliminary 1:</td><td>LIGHT LACTOSE INDUSTRIAL ENGINEERING ANALYST </td></tr><tr><td >Culture Status:</td><td>F inal </td></tr><tr><td >Culture Report:</td><td>C ulture in progress </td></tr><tr><td >Urine Culture:</td><td> Collection Plate Date: 01/18/2020 14:42 </td></tr><tr><td >Organism 1:</td><td>ESCHER ICHIA COLI </td></tr></tbody ></table>
<ta ble border="2"><tbody ><tr><td></td><td >1</td></tr><tr>< td>Comment</td><t d></td></tr><tr>< td>Result Value</td><td>ESC HERICHIA COLI </td></tr><tr><td >Result Status</td><td>Fi nal Result</td></tr>< tr><td>AMPICILLIN </td><td><=8 S</td></tr><tr><t d>AMPICILLIN SULBACTAM</td><td ><=4/2 S</td></tr><tr><t d>AZTREONAM</td>< td><=4 S</td></tr><tr><t d>CEFAZOLIN</td>< td><=2 S</td></tr><tr><t d>CEFOTAXIME-ESBL </td><td><= 1 ^N</td></tr><tr>< td>CEFOXITIN</td> <td><= 8 S</td></tr><tr><t d>CEFTAZIDIME</td ><td><=1 S</td></tr><tr><t d>CEFTRIAXONE</td ><td><=1 S</td></tr><tr><t d>CEFUROXIME</td> <td><=4 S</td></tr><tr><t d>CIPROFLOXACIN</ td><td>> 2 R</td></tr><tr><t d>ERTAPENEM</td>< td><=0.5 S</td></tr><tr><t d>GENTAMICIN</td> <td><= 4 S</td></tr><tr><t d>LEVOFLOXACIN</t d><td>> 4 R</td></tr><tr><t d>MEROPENEM</td>< td><= 1 S</td></tr><tr><t d>NITROFURANTOIN< /td><td><= 32 S</td></tr><tr><t d>PIPERACILLIN/TA ZOBACTAM</td><td> <= 16 S</td></tr><tr><t d>TETRACYCLINE</t d><td><= 4 S</td></tr><tr><t d>TRIMETHOPRIM/OLGUIN LFAMETHOXAZOLE</t d><td><=2/38 S</td></tr></tbod y></table></item> ID Date Data Source Urinalysis.[id number] 12/29/2019 09:50:00 AM EDT [facility] 0 Name Value Range Interpretation Description Data Sup porting Code Source(s) Document(s ) Color of Urine YELLOW <content [facility] styleCode="Rohit Atkinson d">Color, Medical Urine Center </content>YELL OW <content styleCode="Estelita lics"> (YELLOW )</content> Glucose NEGATIVE <content [facility] [Mass/volume] styleCode="Rohit Atkinson in Urine by d">Urine Medical Test strip Glucose Center </content>NEGA TIVE MG/DL<content styleCode="Estelita lics"> (NEGATIVE MG/DL)</conten t> UNK NEGATIVE <content [facility] styleCode="Rohit Colons d">Urine Medical Bilirubin Center </content>NEGA TIVE <content styleCode="Estelita lics"> (NEGATIVE )</content> UNK CLEAR <content [facility] styleCode="Rohit Colons d">Urine Medical Clarity Center </content>CLOU DY <content styleCode="Estelita lics"> (CLEAR )</content> Hemoglobin NEGATIVE <content [facility] [Presence] in styleCode="Rohit Atkinson Urine by Test d">Urine Blood Medical strip </content>TRAC Center E <content styleCode="Estelita lics"> (NEGATIVE )</content> Specific 1.015-1.02 Above high <content [facility] gravity of 5 normal styleCode="Rohit Atkinson Urine by Test d">Urine Medical strip Specific Center [place] </content>>= 1.030 H<content styleCode="Estelita lics"> (1.015-1.025 )</content> Ketones NEGATIVE <content [facility] [Mass/volume] styleCode="Rohit Atkinson in Urine by d">Urine Medical Test strip Ketone Center </content>NEGA TIVE MG/DL<content styleCode="Estelita lics"> (NEGATIVE MG/DL)</conten t> pH of Urine by 4.5-8.0 <content [facility] Test strip styleCode="Rohit Colons d">Urine pH Medical </content>6.0 Center <content styleCode="Estelita lics"> (4.5-8.0 )</content> Protein NEGATIVE <content [facility] [Mass/volume] styleCode="Rohit Colons in Urine by d">Urine Medical Test strip Protein Center </content>NEGA TIVE MG/DL<content styleCode="Estelita lics"> (NEGATIVE MG/DL)</conten t> Urobilinogen 0.2-1.0 <content [facility] [Units/volume] styleCode="Rohit Colons in Urine by d">Urine Medical Test strip Urobilinogen Center </content>0.2 MG/DL<content styleCode="Estelita lics"> (0.2-1.0 MG/DL)</conten t> Nitrite NEGATIVE <content [facility] [Presence] in styleCode="Rohit Atkinson Urine by Test d">Urine Medical strip Nitrite Center </content>POSI TIVE <content styleCode="Estelita lics"> (NEGATIVE )</content> UNK 0-3 <content [facility] styleCode="Rohit Colons d">Urine Red Medical Blood Cell Center </content>3-5 HPF<content styleCode="Estelita lics"> (0-3 HPF)</content> Leukocyte NEGATIVE <content [facility] esterase styleCode="Rohit Colons [Presence] in d">Urine Medical Urine by Test Leukocyte Center strip </content>NEGA TIVE <content styleCode="Estelita lics"> (NEGATIVE )</content> UNK NONE <content [facility] styleCode="Rohit Colons d">Amorphous Medical [place] [facility] </content>MANY HPF<content styleCode="Estelita lics"> (NONE HPF)</content> ID Date Data Source Microbiology.[id number] 12/29/2019 09:50:00 AM EDT [facility] 400 Name Value Range Interpretation Code Description Data Paula rce(s) Supporting Document(s ) UNK <item><content [facility] styleCode="Bold"> Medical [facility] er Culture Report </content>
<t able><tbody><tr>< td>Specimen Number:</td><td>[id number]</td></tr ><tr><td>Sample Collection Date/Time: </td><td>12/29/2019 9:50 AM</td></tr><tr>< td>Specimen Source:</td><td>U RINE BLADDER</td></tr> <tr><td>Prelimina ry 1:</td><td>LIGHT LACTOSE INDUSTRIAL ENGINEERING ANALYST </td></tr><tr><td >Urine Culture:</td><td> Collection Plate Date: 12/29/2019 14:47 </td></tr><tr><td >Culture Status:</td><td>F inal </td></tr><tr><td >Culture Report:</td><td>C ulture in progress </td></tr><tr><td >[place] Count Urine:</td><td>>1 00,000 CFU/ML </td></tr><tr><td >Organism 1:</td><td>ESCHER ICHIA COLI </td></tr></tbody ></table>
<ta ble border="2"><tbody ><tr><td></td><td >1</td></tr><tr>< td>Comment</td><t d></td></tr><tr>< td>Result Value</td><td>ESC HERICHIA COLI </td></tr><tr><td >Result Status</td><td>Fi nal Result</td></tr>< tr><td>AMPICILLIN </td><td><=8 S</td></tr><tr><t d>AMPICILLIN SULBACTAM</td><td ><=4/2 S</td></tr><tr><t d>AZTREONAM</td>< td><=4 S</td></tr><tr><t d>CEFAZOLIN</td>< td><=2 S</td></tr><tr><t d>CEFOTAXIME-ESBL </td><td><= 1 ^N</td></tr><tr>< td>CEFOXITIN</td> <td><= 8 S</td></tr><tr><t d>CEFTAZIDIME</td ><td><=1 S</td></tr><tr><t d>CEFTRIAXONE</td ><td><=1 S</td></tr><tr><t d>CEFUROXIME</td> <td><=4 S</td></tr><tr><t d>CIPROFLOXACIN</ td><td>> 2 R</td></tr><tr><t d>ERTAPENEM</td>< td><=0.5 S</td></tr><tr><t d>GENTAMICIN</td> <td><= 4 S</td></tr><tr><t d>LEVOFLOXACIN</t d><td>> 4 R</td></tr><tr><t d>MEROPENEM</td>< td><= 1 S</td></tr><tr><t d>NITROFURANTOIN< /td><td><= 32 S</td></tr><tr><t d>PIPERACILLIN/TA ZOBACTAM</td><td> <= 16 S</td></tr><tr><t d>TETRACYCLINE</t d><td><= 4 S</td></tr><tr><t d>TRIMETHOPRIM/OLGUIN LFAMETHOXAZOLE</t d><td><=2/38 S</td></tr></tbod y></table></item> UNK <item><content [facility] styleCode="Bold"> Medical Cent er Culture Status </content>
<t able><tbody><tr>< td>Specimen Number:</td><td>[id number]</td></tr ><tr><td>Sample Collection Date/Time: </td><td>12/29/2019 9:50 AM</td></tr><tr>< td>Specimen Source:</td><td>U RINE BLADDER</td></tr> <tr><td>[place] Count Urine:</td><td>>1 00,000 CFU/ML </td></tr><tr><td >Preliminary 1:</td><td>LIGHT LACTOSE INDUSTRIAL ENGINEERING ANALYST </td></tr><tr><td >Culture Status:</td><td>F inal </td></tr><tr><td >Culture Report:</td><td>C ulture in progress </td></tr><tr><td >Urine Culture:</td><td> Collection Plate Date: 12/29/2019 14:47 </td></tr><tr><td >Organism 1:</td><td>ESCHER ICHIA COLI </td></tr></tbody ></table>
<ta ble border="2"><tbody ><tr><td></td><td >1</td></tr><tr>< td>Comment</td><t d></td></tr><tr>< td>Result Value</td><td>ESC HERICHIA COLI </td></tr><tr><td >Result Status</td><td>Fi nal Result</td></tr>< tr><td>AMPICILLIN </td><td><=8 S</td></tr><tr><t d>AMPICILLIN SULBACTAM</td><td ><=4/2 S</td></tr><tr><t d>AZTREONAM</td>< td><=4 S</td></tr><tr><t d>CEFAZOLIN</td>< td><=2 S</td></tr><tr><t d>CEFOTAXIME-ESBL </td><td><= 1 ^N</td></tr><tr>< td>CEFOXITIN</td> <td><= 8 S</td></tr><tr><t d>CEFTAZIDIME</td ><td><=1 S</td></tr><tr><t d>CEFTRIAXONE</td ><td><=1 S</td></tr><tr><t d>CEFUROXIME</td> <td><=4 S</td></tr><tr><t d>CIPROFLOXACIN</ td><td>> 2 R</td></tr><tr><t d>ERTAPENEM</td>< td><=0.5 S</td></tr><tr><t d>GENTAMICIN</td> <td><= 4 S</td></tr><tr><t d>LEVOFLOXACIN</t d><td>> 4 R</td></tr><tr><t d>MEROPENEM</td>< td><= 1 S</td></tr><tr><t d>NITROFURANTOIN< /td><td><= 32 S</td></tr><tr><t d>PIPERACILLIN/TA ZOBACTAM</td><td> <= 16 S</td></tr><tr><t d>TETRACYCLINE</t d><td><= 4 S</td></tr><tr><t d>TRIMETHOPRIM/OLGUIN LFAMETHOXAZOLE</t d><td><=2/38 S</td></tr></tbod y></table></item> ID Date Data Source Liver 12/29/2019 09:50:00 AM EDT [facility] Profile.[id number] Name Value Range Interpretation Description Data Sup porting Code Source(s) Document(s ) Alkaline 38-126 <content [facility] phosphatase styleCode="Bold"> Demetrio [Enzymatic Alkaline Medical activity/volume] Phosphatase (ALP) Cente r in Serum or Plasma </content>79 IU/L<content styleCode="Italic s"> (38-126 IU/L)</content> Aspartate 14-36 <content [facility] aminotransferase styleCode="Bold"> Pedro hs [Enzymatic Aspartate Medical activity/volume] Aminotransferase Center in Serum or Plasma (AST) </content>25 IU/L<content styleCode="Italic s"> (14-36 IU/L)</content> Alanine 7-30 <content [facility] aminotransferase styleCode="Bold"> [place] hs [Enzymatic Alanine Medical activity/volume] Aminotransferase Center in Serum or Plasma (ALT) </content>20 IU/L<content styleCode="Italic s"> (7-30 IU/L)</content> Albumin 3.5-5.0 <content [facility] [Mass/volume] in styleCode="Bold"> [facility] Serum or Plasma Albumin Medical </content>4.0 Center G/DL<content styleCode="Italic s"> (3.5-5.0 G/DL)</content> Bilirubin.total 0.2-1.3 Above high <content Saint [Mass/volume] in normal styleCode="Bold"> Pedro hs Serum or Plasma Bilirubin Total Medical </content>2.3 Center MG/DL H<content styleCode="Italic s"> (0.2-1.3 MG/DL)</content> ID Date Data Source [id number] 12/29/2019 09:50:00 AM EDT [facility] Name Value Range Interpretation Description Data Sup porting Code Source(s) Document(s ) Triglyceride < 150 <content Saint [Mass/volume] in styleCode="[facility] Serum or Plasma d">Triglycerid [facility] Center </content>122 MG/DL<content styleCode="Estelita lics"> (< 150 MG/DL)</conten t> Cholesterol -<200 <content Saint [Mass/volume] in styleCode="[facility]it Demetrio Serum or Plasma d">Cholesterol Medical </content>166 Center MG/DL<content styleCode="Estelita lics"> (-<200 MG/DL)</conten t> UNK > 60 Below low normal <content Saint styleCode="Rohit Demetrio d">HDL- [facility] Ch[facility] Center </content>41 MG/DL L<content styleCode="Estelita lics"> (> 60 MG/DL)</conten t> UNK < 100 Above high normal <content Saint styleCode="Rohit Demetrio d">LDL-[facility] </content>101 MG/DL H<content styleCode="Estelita lics"> (< 100 MG/DL)</conten t> ID Date Data Source [id number] 12/29/2019 09:50:00 AM EDT [facility] Name Value Range Interpretation Description Data Sup porting Code Source(s) Document(s ) Thyrotropin 0.465-4. <content [facility] [Units/volume] 68 styleCode="Rohit Demetrio in Serum or d">Thyroid Medical Plasma by Stimulating Center Detection Hormone limit <= 0.05 </content>1.06 mIU/L MIU/L<content styleCode="Estelita lics"> (0.465-4.68 MIU/L)</conten t> ID Date Data Source HematologyRou.[id number] 12/29/2019 09:50:00 AM EDT [facility] 0400 Name Value Range Interpretation Description Data Sup porting Code Source(s) Document(s ) Erythrocytes 4.0-5.1 Below low normal <content [facility] [#/volume] in styleCode="Bold Demetrio Blood by ">Red Blood Medical Automated count Cell Count Center </content>3.78 MCUMM L<content styleCode="Ital ics"> (4.0-5.1 MCUMM)</content > Leukocytes 4.4-11.0 <content [facility] [#/volume] in styleCode="Bold Demetrio Blood by ">White Blood Medical Automated count Cell Count Center </content>5.50 KCUMM<content styleCode="Ital ics"> (4.4-11.0 KCUMM)</content > Hemoglobin 12.3-16. <content [facility] [Mass/volume] in 0 styleCode="Bold Demetrio Blood ">Hemoglobin Medical </content>13.6 Center G/DL<content styleCode="Ital ics"> (12.3-16.0 G/DL)</content> Hematocrit 36.0-46. <content [facility] [Volume 0 styleCode="Bold Demetrio Fraction] of ">Hematocrit Medical Blood by </content>36.1 Center Automated count %<content styleCode="Ital ics"> (36.0-46.0 %)</content> Erythrocyte 11.5-14. <content [facility] distribution 5 styleCode="Bold Demetrio width [Ratio] by ">Red Cell Medical Automated count Distribution Center Width </content>12.4 %<content styleCode="Ital ics"> (11.5-14.5 %)</content> Platelets 130-400 <content [facility] [#/volume] in styleCode="Bold Demetrio Blood by ">Platelet Medical Automated count Count Center </content>216 KCUMM<content styleCode="Ital ics"> (130-400 KCUMM)</content > Erythrocyte mean 26.0-34. Above high <content [facility] corpuscular 0 normal styleCode="Bold Demetrio hemoglobin ">Mean Medical [Entitic mass] Corposcular Center by Automated Hemoglobin count </content>36.0 PG H<content styleCode="Ital ics"> (26.0-34.0 PG)</content> Erythrocyte mean 32.0-37. Above high <content [facility] corpuscular 0 normal styleCode="Bold Demetrio hemoglobin ">Mean Corpus. Medical concentration Hgb Center [Mass/volume] by Concentration Automated count (MCHC) </content>37.7 G/DL H<content styleCode="Ital ics"> (32.0-37.0 G/DL)</content> Erythrocyte mean 80.0-100 <content [facility] corpuscular .0 styleCode="Bold Demetrio volume [Entitic ">Mean Medical volume] by Corpuscular Center Automated count Volume </content>95.5 FL<content styleCode="Ital ics"> (80.0-100.0 FL)</content> Neutrophils 36-66 Above high <content [facility] [#/volume] in normal styleCode="Bold Demetrio Blood by ">Neutrophil Medical Automated count </content>66.6 Center % H<content styleCode="Ital ics"> (36-66 %)</content> UNK 1.6-7.3 <content [facility] styleCode="Bold Demetrio ">Neutrophil Medical Count Center </content>3.66 KCUMM<content styleCode="Ital ics"> (1.6-7.3 KCUMM)</content > Lymphocytes 24.0-44. <content [facility] [#/volume] in 0 styleCode="Bold Demetrio Blood by ">Lymphocyte Medical Automated count </content>25.1 Center %<content styleCode="Ital ics"> (24.0-44.0 %)</content> UNK 1.0-4.8 <content [facility] styleCode="Bold Demetrio ">Lymphocyte Medical Count Center </content>1.38 KCUMM<content styleCode="Ital ics"> (1.0-4.8 KCUMM)</content > Platelet mean 8.0-11.0 Above high <content [facility] volume [Entitic normal styleCode="Bold Demetrio volume] in Blood ">Mean Platelet Medical by Automated Volume Center count </content>12.6 FL H<content styleCode="Ital ics"> (8.0-11.0 FL)</content> Monocytes 3.0-10.0 <content [facility] [#/volume] in styleCode="Bold Demetrio Blood by ">Monocyte Medical Automated count </content>4.7 Center %<content styleCode="Ital ics"> (3.0-10.0 %)</content> UNK 0.2-0.9 <content [facility] styleCode="Bold Demetrio ">Monocyte Medical Count Center </content>0.26 KCUMM<content styleCode="Ital ics"> (0.2-0.9 KCUMM)</content > Eosinophils 0-5.0 <content [facility] [#/volume] in styleCode="Bold Demetrio Blood by ">Eosinophil Medical Automated count </content>1.6 Center %<content styleCode="Ital ics"> (0-5.0 %)</content> UNK 0.0-0.6 <content [facility] styleCode="Bold Demetrio ">Eosinophil Medical Count Center </content>0.09 KCUMM<content styleCode="Ital ics"> (0.0-0.6 KCUMM)</content > UNK 0-0.1 <content [facility] styleCode="Bold Demetrio ">Immature Medical Granulocyte Center Count </content>0.06 KCUMM<content styleCode="Ital ics"> (0-0.1 KCUMM)</content > UNK 0.0-0.3 <content [facility] styleCode="Bold Demetrio ">Basophil Medical Count Center </content>0.05 KCUMM<content styleCode="Ital ics"> (0.0-0.3 KCUMM)</content > UNK 0 <content [facility] styleCode="Bold Demetrio ">Nucleated Red Medical Blood Cell Center </content>0.0 /100<content styleCode="Ital ics"> (0 /100)</content> UNK 0.0 <content [facility] styleCode="Bold Demetrio ">Nucleated Red Medical Blood Cell Center Count </content>0.00 KCUMM<content styleCode="Ital ics"> (0.0 KCUMM)</content > Basophils 0.0-1.0 <content [facility] [#/volume] in styleCode="Bold Demetrio Blood by ">Basophil Medical Automated count </content>0.9 Center %<content styleCode="Ital ics"> (0.0-1.0 %)</content> UNK < 1 Above high <content [facility] normal styleCode="Bold Demetrio ">Immature Medical Granulocyte Center Ratio </content>1.1 % H<content styleCode="Ital ics"> (< 1 %)</content> ID Date Data Source GFR(Creatinine).[id number] 12/29/2019 09:50:00 AM EDT [facility] 0-0400 Name Value Range Interpretation Code Description Data Paula rce(s) Supporting Document(s ) UNK > 60 <content [facility] styleCode="Bold"> Medical Cent er EGFR </content>145 GFR<content styleCode="Italic s"> (> 60 GFR)</content> ID Date Data Source CHMROUTINECCDA.[id number] 12/29/2019 09:50:00 AM EDT [facility] -0400 Name Value Range Interpretation Description Data Sup porting Code Source(s) Document(s ) UNK >= 1.0 <content [facility] styleCode="Bold Medical ">AG Ratio Center </content>1.1 <content styleCode="Ital ics"> (>= 1.0 )</content> UNK 4.2-5.8 <content [facility] styleCode="Bold Medical ">Hemoglobin Center A1C </content>4.5 %<content styleCode="Ital ics"> (4.2-5.8 %)</content> Protein 6.3-8.2 <content [facility] Dem[facility] [Mass/volum styleCode="Bold Medical e] in Serum ">Total Protein Center or Plasma </content>7.5 G/DL<content styleCode="Ital ics"> (6.3-8.2 G/DL)</content> UNK 2.3-3.5 <content [facility] styleCode="Bold Medical ">Globulin Center </content>3.5 G/DL<content styleCode="Ital ics"> (2.3-3.5 G/DL)</content> ID Date Data Source [id number] 12/29/2019 09:50:[address] [facility] Name Value Range Interpretation Description Data Sup porting Code Source(s) Document(s ) Chloride 98-107 Above high <content [facility] [Moles/volume] in normal styleCode="Bold"> Roberto phs Serum or Plasma Chloride Medical </content>108 Center MEQ/L H<content styleCode="Italic s"> (98-107 MEQ/L)</content> Sodium 137-145 Below low <content [facility] [Moles/volume] in normal styleCode="Bold"> [facility] Serum or Plasma Sodium Medical </content>136 Center MEQ/L L<content styleCode="Italic s"> (137-145 MEQ/L)</content> Carbon dioxide, 22-30 Below low <content [facility] total normal styleCode="Bold"> Demetrio [Moles/volume] in Carbon Dioxide Medical Serum or Plasma </content>21 Center MEQ/L L<content styleCode="Italic s"> (22-30 MEQ/L)</content> Potassium 3.5-5.3 <content [facility] [Moles/volume] in styleCode="Bold"> [facility] Serum or Plasma Potassium Medical </content>4.2 Center MEQ/L<content styleCode="Italic s"> (3.5-5.3 MEQ/L)</content> Creatinine 0.5-1.3 <content [facility] [Mass/volume] in styleCode="Bold"> Pedro hs Serum or Plasma Creatinine Medical </content>0.5 Center MG/DL<content styleCode="Italic s"> (0.5-1.3 MG/DL)</content> UNK > 60 <content [facility] styleCode="Bold"> Demetrio EGFR Medical </content>145 Center GFR<content styleCode="Italic s"> (> 60 GFR)</content> UNK 7-17 <content [facility] styleCode="Bold"> Demetrio BUN </content>12 Medical MG/DL<content Center styleCode="Italic s"> (7-17 MG/DL)</content> Calcium 8.4-10. <content [facility] [Mass/volume] in 2 styleCode="Bold"> Pedro hs Serum or Plasma Calcium Medical </content>8.9 Center MG/DL<content styleCode="Italic s"> (8.4-10.2 MG/DL)</content> Aspartate 14-36 <content [facility] aminotransferase styleCode="Bold"> Pedro hs [Enzymatic Aspartate Medical activity/volume] Aminotransferase Center in Serum or Plasma (AST) </content>25 IU/L<content styleCode="Italic s"> (14-36 IU/L)</content> Glucose 74-106 <content [facility] [Mass/volume] in styleCode="Bold"> Pedro hs Serum or Plasma Glucose Medical </content>101 Center MG/DL<content styleCode="Italic s"> (74-106 MG/DL)</content> Albumin 3.5-5.0 <content [facility] [Mass/volume] in styleCode="Bold"> Pedro hs Serum or Plasma Albumin Medical </content>4.0 Center G/DL<content styleCode="Italic s"> (3.5-5.0 G/DL)</content> Alkaline 38-126 <content [facility] phosphatase styleCode="Bold"> Demetrio [Enzymatic Alkaline Medical activity/volume] Phosphatase (ALP) Cente r in Serum or Plasma </content>79 IU/L<content styleCode="Italic s"> (38-126 IU/L)</content> Alanine 7-30 <content [facility] aminotransferase styleCode="Bold"> Pedro hs [Enzymatic Alanine Medical activity/volume] Aminotransferase Center in Serum or Plasma (ALT) </content>20 IU/L<content styleCode="Italic s"> (7-30 IU/L)</content> Bilirubin.total 0.2-1.3 Above high <content [facility] [Mass/volume] in normal styleCode="Bold"> Pedro hs Serum or Plasma Bilirubin Total Medical </content>2.3 Center MG/DL H<content styleCode="Italic s"> (0.2-1.3 MG/DL)</content> ID Date Data Source [id number] 11/04/2019 05:05:00 PM EDT [facility] Name Value Range Interpretation Code Description Data Paula rce(s) Supporting Document(s ) SARS-COV-2 [facility] This lab was ordered by [facility] and reported by [employer]. ID Date Data Source [id number] 08/22/2019 11:48:00 AM EDT [facility] Name Value Range Interpretation Description Data Sup porting Code Source(s) Document(s ) SARS [facility] CORONAVIRUS 2 RNA This lab was ordered by [facility] and reported by [facility]. ID Date Data Source Urinalysis.[id number] 07/16/2019 10:37:00 AM EST [facility] 0 Name Value Range Interpretation Description Data Sup porting Code Source(s) Document(s ) Color of Urine YELLOW <content [facility] styleCode="Rohit Colons d">Color, Medical Urine Center </content>YELL OW <content styleCode="Estelita lics"> (YELLOW )</content> Ketones NEGATIVE <content [facility] [Mass/volume] styleCode="Rohit Colons in Urine by d">Urine Medical Test strip [facility] Center </content>NEGA TIVE MG/DL<content styleCode="Estelita lics"> (NEGATIVE MG/DL)</conten t> Glucose NEGATIVE <content [facility] [Mass/volume] styleCode="Rohit Demetrio in Urine by d">Urine Medical Test strip Glucose Center </content>NEGA TIVE MG/DL<content styleCode="Estelita lics"> (NEGATIVE MG/DL)</conten t> UNK CLEAR <content [facility] styleCode="Rohit Demetrio d">Urine Medical Clarity Center </content>TURB ID <content styleCode="Estelita lics"> (CLEAR )</content> Specific 1.015-1.02 <content [facility] gravity of 5 styleCode="Rohit Colons Urine by Test d">Urine Medical strip Specific Center [place] </content>1.02 5 <content styleCode="Estelita lics"> (1.015-1.025 )</content> UNK NEGATIVE <content [facility] styleCode="Rohit Demetrio d">Urine Medical Bilirubin Center </content>NEGA TIVE <content styleCode="Estelita lics"> (NEGATIVE )</content> Protein NEGATIVE <content [facility] [Mass/volume] styleCode="Rohit Colons in Urine by d">Urine Medical Test strip Protein Center </content>NEGA TIVE MG/DL<content styleCode="Estelita lics"> (NEGATIVE MG/DL)</conten t> Urobilinogen 0.2-1.0 <content [facility] [Units/volume] styleCode="Rohit Colons in Urine by d">Urine Medical Test strip Urobilinogen Center </content>0.2 MG/DL<content styleCode="Estelita lics"> (0.2-1.0 MG/DL)</conten t> Hemoglobin NEGATIVE <content [facility] [Presence] in styleCode="Rohit Colons Urine by Test d">Urine Blood Medical strip </content>TRAC Center E <content styleCode="Estelita lics"> (NEGATIVE )</content> pH of Urine by 4.5-8.0 <content [facility] Test strip styleCode="Rohit Colons d">Urine pH Medical </content>6.0 Center <content styleCode="Estelita lics"> (4.5-8.0 )</content> Leukocyte NEGATIVE <content [facility] esterase styleCode="Rohit Colons [Presence] in d">Urine Medical Urine by Test Leukocyte Center strip </content>NEGA TIVE <content styleCode="Estelita lics"> (NEGATIVE )</content> UNK 0-3 <content [facility] styleCode="Rohit Colons d">Urine White Medical Blood Cell Center </content>0-3 HPF<content styleCode="Estelita lics"> (0-3 HPF)</content> UNK 0-3 <content [facility] styleCode="Rohit Demetrio d">Urine Red Medical Blood Cell Center </content>3-5 HPF<content styleCode="Estelita lics"> (0-3 HPF)</content> Nitrite NEGATIVE <content [facility] [Presence] in styleCode="Rohit Colons Urine by Test d">Urine Medical strip Nitrite Center </content>NEGA TIVE <content styleCode="Estelita lics"> (NEGATIVE )</content> UNK NONE SEEN <content [facility] styleCode="Rohit Demetrio d">Epithelial Medical Cell Center </content>0-2 HPF<content styleCode="Estelita lics"> (NONE SEEN HPF)</content> UNK NEGATIVE <content [facility] styleCode="Rohit Demetrio d">Urine Medical Bacteria Center </content>FEW HPF<content styleCode="Estelita lics"> (NEGATIVE HPF)</content> UNK NONE <content [facility] styleCode="Rohit Demetrio d">Amorphous Medical [place] Center </content>MANY HPF<content styleCode="Estelita lics"> (NONE HPF)</content> ID Date Data Source Microbiology.[id number] 07/16/2019 10:37:00 AM EST [facility] 500 Name Value Range Interpretation Code Description Data Paula rce(s) Supporting Document(s ) UNK <item><content [facility] styleCode="Bold"> Medical Cent er Culture Status </content>
<t able><tbody><tr>< td>Specimen Number:</td><td>[id number]</td></tr ><tr><td>Sample Collection Date/Time: </td><td> 0 10:37 AM</td></tr><tr>< td>Specimen Source:</td><td>U RINE BLADDER</td></tr> <tr><td>[place] Count Urine:</td><td>>1 00,000 CFU/ML </td></tr><tr><td >Preliminary 1:</td><td>LACTOS E INDUSTRIAL ENGINEERING ANALYST </td></tr><tr><td >Culture Status:</td><td>F inal </td></tr><tr><td >Culture Report:</td><td>C ulture in progress </td></tr><tr><td >Urine Culture:</td><td> Collection Plate Date: 07/16/2019 14:27 </td></tr><tr><td >Organism 1:</td><td>ESCHER ICHIA COLI </td></tr></tbody ></table>
<ta ble border="2"><tbody ><tr><td></td><td >1</td></tr><tr>< td>Comment</td><t d></td></tr><tr>< td>Result Value</td><td>ESC HERICHIA COLI </td></tr><tr><td >Result Status</td><td>Fi nal Result</td></tr>< tr><td>AMPICILLIN </td><td><=8 S</td></tr><tr><t d>AMPICILLIN SULBACTAM</td><td ><=4/2 S</td></tr><tr><t d>AZTREONAM</td>< td><=4 S</td></tr><tr><t d>CEFAZOLIN</td>< td><=2 S</td></tr><tr><t d>CEFOTAXIME-ESBL </td><td><= 1 ^N</td></tr><tr>< td>CEFOXITIN</td> <td><= 8 S</td></tr><tr><t d>CEFTAZIDIME</td ><td><=1 S</td></tr><tr><t d>CEFTRIAXONE</td ><td><=1 S</td></tr><tr><t d>CEFUROXIME</td> <td><=4 S</td></tr><tr><t d>CIPROFLOXACIN</ td><td>> 2 R</td></tr><tr><t d>ERTAPENEM</td>< td><=0.5 S</td></tr><tr><t d>GENTAMICIN</td> <td><= 4 S</td></tr><tr><t d>LEVOFLOXACIN</t d><td>> 4 R</td></tr><tr><t d>MEROPENEM</td>< td><= 1 S</td></tr><tr><t d>NITROFURANTOIN< /td><td><= 32 S</td></tr><tr><t d>PIPERACILLIN/TA ZOBACTAM</td><td> <= 16 S</td></tr><tr><t d>TETRACYCLINE</t d><td><= 4 S</td></tr><tr><t d>TRIMETHOPRIM/OLGUIN LFAMETHOXAZOLE</t d><td><=2/38 S</td></tr></tbod y></table></item> UNK <item><content [facility] styleCode="Bold"> Medical [facility] er Culture Report </content>
<t able><tbody><tr>< td>Specimen Number:</td><td>[id number]</td></tr ><tr><td>Sample Collection Date/Time: </td><td> 0 10:37 AM</td></tr><tr>< td>Specimen Source:</td><td>U RINE BLADDER</td></tr> <tr><td>Prelimina ry 1:</td><td>LACTOS E INDUSTRIAL ENGINEERING ANALYST </td></tr><tr><td >Urine Culture:</td><td> Collection Plate Date: 07/16/2019 14:27 </td></tr><tr><td >Culture Status:</td><td>F inal </td></tr><tr><td >Culture Report:</td><td>C ulture in progress </td></tr><tr><td >[place] Count Urine:</td><td>>1 00,000 CFU/ML </td></tr><tr><td >Organism 1:</td><td>ESCHER ICHIA COLI </td></tr></tbody ></table>
<ta ble border="2"><tbody ><tr><td></td><td >1</td></tr><tr>< td>Comment</td><t d></td></tr><tr>< td>Result Value</td><td>ESC HERICHIA COLI </td></tr><tr><td >Result Status</td><td>Fi nal Result</td></tr>< tr><td>AMPICILLIN </td><td><=8 S</td></tr><tr><t d>AMPICILLIN SULBACTAM</td><td ><=4/2 S</td></tr><tr><t d>AZTREONAM</td>< td><=4 S</td></tr><tr><t d>CEFAZOLIN</td>< td><=2 S</td></tr><tr><t d>CEFOTAXIME-ESBL </td><td><= 1 ^N</td></tr><tr>< td>CEFOXITIN</td> <td><= 8 S</td></tr><tr><t d>CEFTAZIDIME</td ><td><=1 S</td></tr><tr><t d>CEFTRIAXONE</td ><td><=1 S</td></tr><tr><t d>CEFUROXIME</td> <td><=4 S</td></tr><tr><t d>CIPROFLOXACIN</ td><td>> 2 R</td></tr><tr><t d>ERTAPENEM</td>< td><=0.5 S</td></tr><tr><t d>GENTAMICIN</td> <td><= 4 S</td></tr><tr><t d>LEVOFLOXACIN</t d><td>> 4 R</td></tr><tr><t d>MEROPENEM</td>< td><= 1 S</td></tr><tr><t d>NITROFURANTOIN< /td><td><= 32 S</td></tr><tr><t d>PIPERACILLIN/TA ZOBACTAM</td><td> <= 16 S</td></tr><tr><t d>TETRACYCLINE</t d><td><= 4 S</td></tr><tr><t d>TRIMETHOPRIM/OLGUIN LFAMETHOXAZOLE</t d><td><=2/38 S</td></tr></tbod y></table></item> ID Date Data Source Hormones.[id number] 07/05/2019 01:08:00 PM [facility] Name Value Range Interpretation Description Data Sup porting Code Source(s) Document(s ) Thyrotropin 0.465-4. Below low normal <content [facility] [Units/volume] 68 styleCode="Rohit Demetrio in Serum or d">Thyroid Medical Plasma by [facility] Center Detection Hormone limit <= 0.05 </content>0.44 mIU/L 2 MIU/L L<content styleCode="Estelita lics"> (0.465-4.68 MIU/L)</conten t> ID Date Data Source HematologyRou.[id number] 07/05/2019 01:08:00 PM [facility] 0500 Name Value Range Interpretation Description Data Sup porting Code Source(s) Document(s ) Hematocrit 36.0-46. <content [facility] [Volume 0 styleCode="Bold Demetrio Fraction] of ">Hematocrit Medical Blood by </content>37.5 Center Automated count %<content styleCode="Ital ics"> (36.0-46.0 %)</content> Hemoglobin 12.3-16. <content [facility] [Mass/volume] in 0 styleCode="Bold Demetrio Blood ">Hemoglobin Medical </content>13.9 Center G/DL<content styleCode="Ital ics"> (12.3-16.0 G/DL)</content> Erythrocyte mean 80.0-100 <content [facility] corpuscular .0 styleCode="Bold Demetrio volume [Entitic ">Mean Medical volume] by Corpuscular Center Automated count Volume </content>94.0 FL<content styleCode="Ital ics"> (80.0-100.0 FL)</content> Leukocytes 4.4-11.0 <content [facility] [#/volume] in styleCode="Bold Demetrio Blood by ">White Blood Medical Automated count Cell Count Center </content>5.81 KCUMM<content styleCode="Ital ics"> (4.4-11.0 KCUMM)</content > Erythrocytes 4.0-5.1 Below low normal <content [facility] [#/volume] in styleCode="Bold Demetrio Blood by ">Red Blood Medical Automated count Cell Count Center </content>3.99 MCUMM L<content styleCode="Ital ics"> (4.0-5.1 MCUMM)</content > Erythrocyte mean 26.0-34. Above high <content [facility] corpuscular 0 normal styleCode="Bold Demetrio hemoglobin ">Mean Medical [Entitic mass] Corposcular Center by Automated Hemoglobin count </content>34.8 PG H<content styleCode="Ital ics"> (26.0-34.0 PG)</content> Erythrocyte 11.5-14. <content [facility] distribution 5 styleCode="Bold Demetrio width [Ratio] by ">Red Cell Medical Automated count Distribution Center Width </content>12.1 %<content styleCode="Ital ics"> (11.5-14.5 %)</content> Erythrocyte mean 32.0-37. Above high <content [facility] corpuscular 0 normal styleCode="Bold Demetrio hemoglobin ">Mean Corpus. Medical concentration Hgb Center [Mass/volume] by Concentration Automated count (MCHC) </content>37.1 G/DL H<content styleCode="Ital ics"> (32.0-37.0 G/DL)</content> Platelets 130-400 <content [facility] [#/volume] in styleCode="Bold Demetrio Blood by ">Platelet Medical Automated count Count Center </content>237 KCUMM<content styleCode="Ital ics"> (130-400 KCUMM)</content > UNK 0 <content [facility] styleCode="Bold Demetrio ">Nucleated Red Medical Blood Cell Center </content>0.0 /100<content styleCode="Ital ics"> (0 /100)</content> Platelet mean 8.0-11.0 Above high <content [facility] volume [Entitic normal styleCode="Bold Demetrio volume] in Blood ">Mean Platelet Medical by Automated Volume Center count </content>11.6 FL H<content styleCode="Ital ics"> (8.0-11.0 FL)</content> UNK 0.0 <content [facility] styleCode="Bold Demetrio ">Nucleated Red Medical Blood Cell Center Count </content>0.00 KCUMM<content styleCode="Ital ics"> (0.0 KCUMM)</content > ID Date Data Source GFR(Creatinine).[id number] 07/05/2019 01:08:00 PM [facility] 0-0500 Name Value Range Interpretation Code Description Data Puala rce(s) Supporting Document(s ) UNK > 60 <content [facility] styleCode="Bold"> Medical Cent er EGFR </content>188 GFR<content styleCode="Italic s"> (> 60 GFR)</content> ID Date Data Source CHMROUTINECCDA.[id number] 07/05/2019 01:08:00 PM [facility] -0500 Name Value Range Interpretation Description Data Sup porting Code Source(s) Document(s ) Magnesium 1.6-2.3 <content [facility] [Mass/volume] styleCode="Rohit Demetrio in Serum or d">Magnesium Medical Plasma </content>2.0 Center MG/DL<content styleCode="Estelita lics"> (1.6-2.3 MG/DL)</conten t> Phosphate 2.5-4.5 <content [facility] [Mass/volume] styleCode="Rohit Demetrio in Serum or d">Phosphorus Medical Plasma </content>3.0 Center MG/DL<content styleCode="Estelita lics"> (2.5-4.5 MG/DL)</conten t> ID Date Data Source [facility].[id number] 07/05/2019 01:08:00 PM EST [facility] Name Value Range Interpretation Description Data Sup porting Code Source(s) Document(s ) Sodium 137-145 <content [facility] [Moles/volume] styleCode="Rohit Demetrio in Serum or d">Sodium Medical Plasma </content>138 Center MEQ/L<content styleCode="Estelita lics"> (137-145 MEQ/L)</conten t> Potassium 3.5-5.3 <content [facility] [Moles/volume] styleCode="Rohit Demetrio in Serum or d">Potassium Medical Plasma </content>4.3 Center MEQ/L<content styleCode="Estelita lics"> (3.5-5.3 MEQ/L)</conten t> Chloride 98-107 <content [facility] [Moles/volume] styleCode="Rohit Demetrio in Serum or d">Chloride Medical Plasma </content>104 Center MEQ/L<content styleCode="Estelita lics"> (98-107 MEQ/L)</conten t> UNK 7-17 <content [facility] styleCode="Rohit Demetrio d">BUN Medical </content>15 Center MG/DL<content styleCode="Estelita lics"> (7-17 MG/DL)</conten t> Carbon 22-30 <content [facility] dioxide, total styleCode="Rohit Demetrio [Moles/volume] d">Carbon Medical in Serum or Dioxide Center Plasma </content>26 MEQ/L<content styleCode="Estelita lics"> (22-30 MEQ/L)</conten t> Glucose 74-106 <content [facility] [Mass/volume] styleCode="Rohit Demetrio in Serum or d">Glucose Medical Plasma </content>87 Center MG/DL<content styleCode="Estelita lics"> (74-106 MG/DL)</conten t> Creatinine 0.5-1.3 Below low normal <content [facility] [Mass/volume] styleCode="Rohit Demetrio in Serum or d">Creatinine Medical Plasma </content>0.4 Center MG/DL L<content styleCode="Estelita lics"> (0.5-1.3 MG/DL)</conten t> Calcium 8.4-10.2 <content [facility] [Mass/volume] styleCode="Rohit Demetrio in Serum or d">Calcium Medical Plasma </content>9.8 Center MG/DL<content styleCode="Estelita lics"> (8.4-10.2 MG/DL)</conten t> UNK > 60 <content [facility] styleCode="Rohit Demetrio d">EGFR Medical </content>188 Center GFR<content styleCode="Estelita lics"> (> 60 GFR)</content> ID Date Data Source Urinalysis.[id number] 05/11/2019 02:50:00 PM [facility] 0 Name Value Range Interpretation Description Data Sup porting Code Source(s) Document(s ) UNK CLEAR <content [facility] styleCode="Rohit Colons d">Urine Medical Clarity Center </content>MARYSE R <content styleCode="Estelita lics"> (CLEAR )</content> Color of Urine YELLOW <content [facility] styleCode="Rohit Colons d">[facility] </content>YELL OW <content styleCode="Estelita lics"> (YELLOW )</content> Ketones NEGATIVE <content [facility] [Mass/volume] styleCode="Rohit Colons in Urine by d">Urine Medical Test strip Ketone Center </content>NEGA TIVE MG/DL<content styleCode="Estelita lics"> (NEGATIVE MG/DL)</conten t> Glucose NEGATIVE <content [facility] [Mass/volume] styleCode="Rohit Demetrio in Urine by d">Urine Medical Test strip Glucose Center </content>NEGA TIVE MG/DL<content styleCode="Estelita lics"> (NEGATIVE MG/DL)</conten t> UNK NEGATIVE <content Saint styleCode="Rohit Demetrio d">Urine Medical Bilirubin Center </content>NEGA TIVE <content styleCode="Estelita lics"> (NEGATIVE )</content> Specific 1.015-1.02 Below low normal <content Saint gravity of 5 styleCode="Rohit Colons Urine by Test d">Urine Medical strip Specific Center [place] </content>1.01 0 L<content styleCode="Estelita lics"> (1.015-1.025 )</content> Hemoglobin NEGATIVE <content [facility] [Presence] in styleCode="Rohit Colons Urine by Test d">Urine Blood Medical strip </content>TRAC Center E <content styleCode="Estelita lics"> (NEGATIVE )</content> Protein NEGATIVE <content [facility] [Mass/volume] styleCode="Rohit Colons in Urine by d">Urine Medical Test strip Protein Center </content>NEGA TIVE MG/DL<content styleCode="Estelita lics"> (NEGATIVE MG/DL)</conten t> pH of Urine by 4.5-8.0 <content Saint Test strip styleCode="Rohit Demetrio d">Urine pH Medical </content>6.5 Center <content styleCode="Estelita lics"> (4.5-8.0 )</content> Urobilinogen 0.2-1.0 <content [facility] [Units/volume] styleCode="Rohit Colons in Urine by d">Urine Medical Test strip Urobilinogen Center </content>0.2 MG/DL<content styleCode="Estelita lics"> (0.2-1.0 MG/DL)</conten t> Nitrite NEGATIVE <content [facility] [Presence] in styleCode="Rohit Colons Urine by Test d">Urine Medical strip Nitrite Center </content>NEGA TIVE <content styleCode="Estelita lics"> (NEGATIVE )</content> Leukocyte NEGATIVE <content Saint esterase styleCode="Rohit Colons [Presence] in d">Urine Medical Urine by Test Leukocyte Center strip </content>TRAC E <content styleCode="Estelita lics"> (NEGATIVE )</content> UNK 0-3 <content Saint styleCode="Rohit Demetrio d">Urine White Medical Blood Cell Center </content>5 - 10 HPF<content styleCode="Estelita lics"> (0-3 HPF)</content> UNK 0-3 <content Saint styleCode="Rohit Demetrio d">Urine Red Medical Blood Cell Center </content>0-3 HPF<content styleCode="Estelita lics"> (0-3 HPF)</content> UNK NEGATIVE <content Saint styleCode="Rohit Atkinson d">Urine Medical Bacteria Center </content>MODE RATE HPF<content styleCode="Estelita lics"> (NEGATIVE HPF)</content> UNK NONE SEEN <content Saint styleCode="Rohit Colons d">Epithelial Medical Cell Center </content>10 - 20 HPF<content styleCode="Estelita lics"> (NONE SEEN HPF)</content> ID Date Data Source [id number] 05/11/2019 02:50:00 PM EST [facility] 500 Name Value Range Interpretation Code Description Data Paula rce(s) Supporting Document(s ) UNK <item><content [facility] styleCode="Bold"> Medical nter lture Report </content>
<tab le><tbody><tr><td>S pecimen Number:</td><td>[id number]</td></tr><tr ><td>Sample Collection Date/Time: </td><td>05/11/2019 2:50 PM</td></tr><tr><td >Specimen Source:</td><td>URI NE BLADDER</td></tr><t r><td>Urine Culture:</td><td>Co llection Plate Date: 05/11/2019 16:57 </td></tr><tr><td>C ulture Status:</td><td>Fin al </td></tr><tr><td>C ulture Report:</td><td>Cul ture in progress </td></tr><tr><td>O rganism 1:</td><td>Gram-neg ative adriana - [employer] species </td></tr><tr><td>O rganism 2:</td><td>STREPTOC OCCUS VIRIDANS </td></tr><tr><td>O rganism 3:</td><td>COAGULAS E NEGATIVE STAPHYLOCOCCUS </td></tr></tbody>< /table>
<table border="2"><tbody>< tr><td></td><td>1</ td><td>2</td><td>3< /td></tr><tr><td>Co mment</td><td></td> <td></td><td></td>< /tr><tr><td>Result Value</td><td>Gram- negative adriana - [employer] species </td><td>STREPTOCOC CUS VIRIDANS </td><td>COAGULASE NEGATIVE STAPHYLOCOCCUS </td></tr><tr><td>R esult Status</td><td>Liz l Result</td><td>Liz l Result</td><td>Liz l Result</td></tr><tr ><td></td><td></td> <td></td><td></td>< /tr></tbody></table ></item> UNK <item><content [facility] styleCode="Bold">Cu Medical Ce nter lture Status </content>
<tab le><tbody><tr><td>S pecimen Number:</td><td>[id number]</td></tr><tr ><td>Sample Collection Date/Time: </td><td>05/11/2019 2:50 PM</td></tr><tr><td >Specimen Source:</td><td>URI NE BLADDER</td></tr><t r><td>Culture Status:</td><td>Fin al </td></tr><tr><td>C ulture Report:</td><td>Cul ture in progress </td></tr><tr><td>U rine Culture:</td><td>Co llection Plate Date: 05/11/2019 16:57 </td></tr><tr><td>O rganism 1:</td><td>Gram-neg ative adriana - [employer] species </td></tr><tr><td>O rganism 2:</td><td>STREPTOC OCCUS VIRIDANS </td></tr><tr><td>O rganism 3:</td><td>COAGULAS E NEGATIVE STAPHYLOCOCCUS </td></tr></tbody>< /table>
<table border="2"><tbody>< tr><td></td><td>1</ td><td>2</td><td>3< /td></tr><tr><td>Co mment</td><td></td> <td></td><td></td>< /tr><tr><td>Result Value</td><td>Gram- negative adriana - [employer] species </td><td>STREPTOCOC CUS VIRIDANS </td><td>COAGULASE NEGATIVE STAPHYLOCOCCUS </td></tr><tr><td>R esult Status</td><td>Liz l Result</td><td>Liz l Result</td><td>Liz l Result</td></tr><tr ><td></td><td></td> <td></td><td></td>< /tr></tbody></table ></item> Procedure Social History Code Duration Value Status Description Data Source(s ) Smoking 02/07/2020 Never Smoker completed Never Smoker eCW1 (Patti t 12:00:00 AM [facility]) Caffeine Use 2020 completed NEXTGEN ([facility] nt Details 12:00:00 AM [facility]) 2020 Never smoked completed Never smoked NEXTGEN (S aint 12:00:00 AM tobacco tobacco [facility]) Alcohol Use 2020 hard liquor 1 completed hard liquor 1 NEXTGEN ([facility] Details 12:00:00 AM drink drink [facility]) Smoking 2020 Unknown if ever completed Unknown if ever NEXT GEN ([facility] 12:00:00 AM smoked smoked [facility]) Caffeine Use 12/29/2019 completed NEXTGEN ([facility] nt Details 12:00:00 AM [facility]) Vital Signs ID Date Data Source UNK Name Value Range Interpretation Code Description Data Source(s) Diastolic blood 81 mm[Hg] 81 mm[Hg] eCW1 ([facility] nt pressure [facility]) Systolic blood 126 mm[Hg] 126 mm[Hg] eCW1 ([facility]) Heart rate 69 /min 69 /min eCW1 ([facility]) Body mass index 30.85 kg/m2 30.85 kg/m2 eCW1 (S ai (BMI) [Ratio] [facility]) Body weight 158 [lb_av] 158 [lb_av] eCW1 ([facility]) Body height 60 [in_i] 60 [in_i] eCW1 ([facility]) Oxygen saturation 99 % 99 % NEXTGEN ([facility] in Arterial blood [facility]) Body mass index 30.47 kg/m2 Overweight 30.47 kg/m2 NEXTGEN ([facility] (BMI) [Ratio] [facility]) Respiratory rate 18 /min 18 /min [facility] Body temperature 37.28 Hellen 37.28 Hellen [facility] ([facility]) Heart rate 80 /min 80 /min [facility] Diastolic blood 65 mm[Hg] 65 mm[Hg] NEXTGEN ( [facility]) Systolic blood 108 mm[Hg] 108 mm[Hg] NEXTGEN (S aint [facility]) Body weight 70.760 kg 70.760 kg [facility] ([facility]) Body height 152.40 cm 152.40 cm [facility] ([facility]) Oxygen saturation 95 % 95 % NEXTGEN ([facility] in Arterial blood [facility] by Pulse oximetry Center) Body mass index 29.65 kg/m2 Overweight 29.65 kg/m2 NEXTGEN ([facility] (BMI) [Ratio] [facility]) Respiratory rate 18 /min 18 /min NEXTGEN ([facility]) Body temperature 36.83 Hellen 36.83 Hellen NEXTGEN ([facility]) Heart rate 73 /min 73 /min NEXTGEN ([facility]) Diastolic blood 73 mm[Hg] 73 mm[Hg] NEXTGEN ( [facility]) Systolic blood 108 mm[Hg] 108 mm[Hg] NEXTGEN ([facility]) Body weight 68.855 kg 68.855 [facility]) Body height 152.40 cm 152.40 cm [facility] ([facility]) Oxygen saturation 98 % 98 % NEXTGEN ([facility] in Arterial blood [facility] by Pulse oximetry Center) Body mass index 29.69 kg/m2 Overweight 29.69 kg/m2 NEXTGEN ([facility] (BMI) [Ratio] [facility]) Respiratory rate 19 /min 19 /min NEXTGEN ([facility]) Body temperature 36.44 Hellen 36.44 Hellen [facility]) Heart rate 70 /min 70 /min NEXTGEN ([facility]) Diastolic blood 69 mm[Hg] 69 mm[Hg] NEXTGEN ( [facility]) Systolic blood 103 mm[Hg] 103 mm[Hg] [facility]) Body weight 68.946 kg 68.946 kg [facility] ([facility]) Body height 152.40 cm 152.40 cm [facility] ([facility]) Oxygen saturation 97 % 97 % NEXTGEN ([facility] in Arterial [facility] by Pulse oximetry Center) Body mass index 29.10 kg/m2 Overweight 29.10 kg/m2 NEXTGEN ([facility] (BMI) [Ratio] [facility]) Respiratory rate 18 /min 18 /min [facility] ([facility]) Body temperature 37.22 Hellen 37.22 Hellen [facility]) Heart rate 65 /min 65 /min NEXTGEN ([facility]) Diastolic blood 73 mm[Hg] 73 mm[Hg] NEXTGEN ( [facility]) Systolic blood 110 mm[Hg] 110 mm[Hg] NEXTGEN (S nt pressure [facility]) Body weight 67.585 kg 67.585 kg [facility] ([facility]) Body height 152.40 cm 152.40 cm [facility]) Oxygen saturation 99 % 99 % NEXTGEN ([facility] in Arterial blood [facility] by Pulse oximetry Center) Body mass index 29.49 kg/m2 Overweight 29.49 kg/m2 NEXTGEN ([facility] (BMI) [Ratio] [facility]) Respiratory rate 17 /min 17 /min [facility] ([facility]) Body temperature 36.44 Hellen 36.44 Hellen [facility]) Heart rate 63 /min 63 /min NEXTGEN ([facility]) Diastolic blood 81 mm[Hg] 81 mm[Hg] [facility] ( [facility]) Systolic blood 120 mm[Hg] 120 mm[Hg] [facility] (S nt [facility]) Body weight 68.492 kg 68.492 kg [facility] ([facility]) Body height 152.40 cm 152.40 cm [facility] ([facility]) Oxygen saturation 100 % 100 % NEXTGEN ([facility] in Arterial blood [facility] by Pulse [facility]etry Center) Body mass index 29.10 kg/m2 Overweight 29.10 kg/m2 NEXTGEN ([facility] (BMI) [Ratio] [facility]) Respiratory rate 16 /min 16 /min [facility]) Body temperature 36.89 Hellen 36.89 Hellen [facility]) Heart rate 62 /min 62 /min [facility]) Diastolic blood 57 mm[Hg] 57 mm[Hg] NEXTGEN ( [facility]) Systolic blood 97 mm[Hg] 97 mm[Hg] [facility] (S aint [facility]) Body weight 67.585 kg 67.585 kg NEXTGEN ([facility] Body height 152.40 cm 152.40 cm NEXTGEN ([facility] t [facility]) Diastolic blood 69 mm[Hg] 69 mm[Hg] eCW1 ([facility] nt pressure [facility]) Systolic blood 106 mm[Hg] 106 mm[Hg] eCW1 (Patti t pressure [facility]) Body mass index 30.46 kg/m2 30.46 kg/m2 eCW1 (S aint (BMI) [Ratio] [facility]) Body weight 156 [lb_av] 156 [lb_av] eCW1 [facility]) Body height 60 [in_us] 60 [in_us] eCW1 ([facility]) Oxygen saturation 97 % 97 % NEXTGEN ([facility] in Arterial blood [facility] by Pulse oximetry Center) Body mass index 29.29 kg/m2 Overweight 29.29 kg/m2 NEXTGEN ([facility] (BMI) [Ratio] [facility]) Respiratory rate 19 /min 19 /min [facility] ([facility]) Body temperature 36.94 Hellen 36.94 Hellen [facility] ([facility]) Heart rate 60 /min 60 /min [facility] ([facility]) Diastolic blood 69 mm[Hg] 69 mm[Hg] NEXTGEN ( [facility]) Systolic blood 106 mm[Hg] 106 mm[Hg] NEXTGEN ([facility]) Body weight 68.039 kg 68.039 kg NEXTGEN ([facility]) Body height 152.40 cm 152.40 cm NEXTGEN ([facility]) Oxygen saturation 99 % 99 % NEXTGEN ([facility] in Arterial blood [facility] by Pulse o[facility]etry Center) Body mass index 29.10 kg/m2 Overweight 29.10 kg/m2 NEXTGEN ([facility] (BMI) [Ratio] [facility]) Respiratory rate 18 /min 18 /min [facility] ([facility]) Body temperature 36.50 Hellen 36.50 Hellen [facility]) Heart rate 61 /min 61 /min NEXTGEN ([facility]) Diastolic blood 72 mm[Hg] 72 mm[Hg] NEXTGEN ( [facility]) Systolic blood 111 mm[Hg] 111 mm[Hg] NEXTGEN (S aint pressure [facility]) Body weight 67.585 kg 67.585 kg [facility] ([facility]) Body height 152.40 cm 152.40 cm [facility] ([facility]) Oxygen saturation 97 % 97 % NEXTGEN ([facility] in Arterial blood [facility] by Pulse [facility]) Body mass index 30.27 kg/m2 Overweight 30.27 kg/m2 [facility] ([facility] (BMI) [Ratio] [facility]) Respiratory rate 18 /min 18 /min [facility] ([facility]) Body temperature 36.39 Hellen 36.39 Hellen [facility]) Heart rate 83 /min 83 /min NEXTGEN ([facility]) Diastolic blood 73 mm[Hg] 73 mm[Hg] [facility] ( [facility]) Systolic blood 106 mm[Hg] 106 mm[Hg] [facility] (S nt [facility]) Body weight 70.307 kg 70.307 kg [facility] ([facility]) Body height 152.40 cm 152.40 cm [facility] ([facility]) Oxygen saturation 99 % 99 % NEXTGEN ([facility] in Arterial blood [facility] by Pulse [facility] Center) Body mass index 30.47 kg/m2 Overweight 30.47 kg/m2 NEXTGEN ([facility] (BMI) [Ratio] [facility]) Respiratory rate 19 /min 19 /min NEXTGEN ([facility]) Body temperature 36.50 Hellen 36.50 Hellen [facility]) Heart rate 60 /min 60 /min [facility] ([facility]) Diastolic blood 72 mm[Hg] 72 mm[Hg] NEXTGEN ( [facility]) Systolic blood 107 mm[Hg] 107 mm[Hg] [facility] (S nt [facility]) Body weight 70.760 kg 70.760 kg NEXTGEN ([facility]) Body height 152.40 cm 152.40 cm NEXTGEN ([facility]) Diastolic blood 76 mm[Hg] 76 mm[Hg] eCW1 ([facility] nt pressure [facility]) Systolic blood 121 mm[Hg] 121 mm[Hg] [facility]CW[facility]) Heart rate 70 /min 70 /min eCW1 ([facility]) Body mass index 30.46 kg/m2 30.46 kg/m2 eCW1 (S aint (BMI) [Ratio] [facility]) Body weight 156 [lb_av] 156 [lb_av] eCW1 ([facility]) Body height 60 [in_us] 60 [in_us] eCW1 ([facility]) Oxygen saturation 98 % 98 % NEXTGEN ([facility] in Arterial blood [facility] by Pulse o[facility] Center) Body mass index 30.27 kg/m2 Overweight 30.27 kg/m2 NEXTGEN ([facility] (BMI) [Ratio] [facility]) Body temperature 36.56 Hellen 36.56 Hellen [facility]) Heart rate 70 /min 70 /min NEXTGEN ([facility]) Diastolic blood 73 mm[Hg] 73 mm[Hg] NEXTGEN ( [facility]) Systolic blood 116 mm[Hg] 116 mm[Hg] NEXTGEN (S aint [facility]) Body weight 70.307 kg 70.307 kg NEXTGEN ([facility]) Body height 152.40 cm 152.40 cm [facility]) Oxygen saturation 98 % 98 % [facility] ([facility] in Arterial blood [facility] by Pulse o[facility] Center) Body mass index 30.86 kg/m2 Overweight 30.86 kg/m2 NEXTGEN ([facility] (BMI) [Ratio] [facility]) Respiratory rate 18 /min 18 /min NEXTGEN ([facility]) Body temperature 36.56 Hellen 36.56 Hellen [facility]) Heart rate 71 /min 71 /min NEXTGEN ([facility]) Diastolic blood 74 mm[Hg] 74 mm[Hg] NEXTGEN ( [facility]) Systolic blood 111 mm[Hg] 111 mm[Hg] NEXTGEN (S nt pressure [facility]) Body weight 71.668 kg 71.668 [facility] ([facility]) Body height 152.40 cm 152.40 cm [facility] ([facility]) Oxygen saturation 98 % 98 % NEXTGEN ([facility] Arterial [facility] by Pulse oximetry Center) Body mass index 30.86 kg/m2 Overweight 30.86 kg/m2 NEXTGEN ([facility] (BMI) [Ratio] [facility]) Respiratory rate 18 /min 18 /min [facility]) Body temperature 36.72 Hellen 36.72 Hellen [facility] ([facility]) Heart rate 69 /min 69 /min NEXTGEN ([facility]) Diastolic blood 70 mm[Hg] 70 mm[Hg] [facility] ( [facility]) Systolic blood 108 mm[Hg] 108 mm[Hg] [facility] ([facility]) Body weight 71.668 kg 71.668 kg [facility] ([facility]) Body height 152.40 cm 152.40 cm [facility] ([facility]) Oxygen saturation 97 % 97 % NEXTGEN ([facility] in Arterial [facility] by Pulse o[facility]etry Center) Body mass index 30.27 kg/m2 Overweight 30.27 kg/m2 NEXTGEN ([facility] (BMI) [Ratio] [facility]) Respiratory rate 18 /min 18 /min NEXTGEN ([facility]) Body temperature 36.67 Hellen 36.67 Hellen [facility]) Heart rate 65 /min 65 /min NEXTGEN ([facility]) Diastolic blood 69 mm[Hg] 69 mm[Hg] NEXTGEN ( [facility]) Systolic blood 105 mm[Hg] 105 mm[Hg] [facility] ([facility] nt [facility]) Body weight 70.307 kg 70.307 kg [facility] ([facility]) Body height 152.40 cm 152.40 cm [facility] ([facility]) Oxygen saturation 97 % 97 % [facility] in Arterial blood [facility] by Pulse oximetry Center) Body mass index 31.01 kg/m2 Overweight 31.01 kg/m2 NEXTGEN ([facility] (BMI) [Ratio] [facility] Respiratory rate 18 /min 18 /min [facility] ([facility]) Body temperature 36.61 Hellen 36.61 Hellen [facility] ([facility]) Heart rate 76 /min 76 /min [facility] ([facility]) Diastolic blood 86 mm[Hg] 86 mm[Hg] [facility] ( [facility] pressure [facility]) Systolic blood 122 mm[Hg] 122 mm[Hg] [facility] ( aint [facility]) Body weight 72.030 kg 72.030 kg [facility] ([facility]) Body height 152.40 cm 152.40 cm [facility] ([facility]) Patient Treatment Plan of Care Planned Activity Planned Date Details Description Data Source (s) Fluconazole 150 MG Oral 2020 NEXT GEN ([facility] Tablet 12:00:00 AM [facility]) Cephalexin 500 MG Oral 2020 NEXTG EN ([facility] Capsule [Keflex] 12:00:00 AM [facility]) Sulfamethoxazole 800 MG / 01/01/2020 NE XTGEN ([facility] Trimethoprim 160 MG Oral 12:00:00 AM [facility] Tablet [Bactrim] [place]) Famotidine 40 MG Oral 12/29/2019 NEXTGE N ([facility] Tablet 12:00:00 AM [facility]) Loratadine 10 MG Oral 12/06/2019 NEXTGE N ([facility] Tablet 12:00:00 AM [facility]) Acetaminophen 500 MG Oral 12/06/2019 NE XTGEN ([facility] Capsule [Mapap] 12:00:00 AM [facility]) Famotidine 20 MG Oral 09/29/2019 NEXTGE N ([facility] Tablet 12:00:00 AM [facility]) pantoprazole 40 MG Delayed 09/29/2019 N EXTGEN ([facility] Release Oral Tablet 12:00:00 AM [facility]) benzonatate 200 MG Oral 09/20/2019 NEXT GEN ([facility] Capsule 12:00:00 AM [facility]) benzonatate 200 MG Oral 09/02/2019 NEXT GEN ([facility] Capsule 12:00:00 AM [facility]) Azithromycin 250 MG Oral 09/02/2019 NEX TGEN ([facility] Tablet 12:00:00 AM [facility]) Guaifenesin 20 MG/ML Oral 08/20/2019 NE XTGEN ([facility] Solution 12:00:00 AM [facility]) Acetaminophen 500 MG Oral 08/20/2019 NE XTGEN ([facility] Capsule [Mapap] 12:00:00 AM [facility]) Loratadine 10 MG Oral 08/20/2019 NEXTGE N ([facility] Tablet 12:00:00 AM [facility]) nabumetone 500 MG Oral 08/04/2019 NEXTG EN ([facility] Tablet 12:00:00 AM [facility]) NITROFURANTOIN, 07/19/2019 NEXTGEN (May[facility] nt MACROCRYSTALS 25 MG / 12:00:00 AM [facility] Nitrofurantoin, Monohydrate Center) 75 MG Oral Capsule [Macrobid] Meclizine Hydrochloride 25 07/05/2019 N EXTGEN ([facility] MG Oral Tablet 12:00:00 AM [facility] dical Center) Phenazopyridine 05/11/2019 NEXTGEN (Mayito nt hydrochloride 200 MG Oral 12:00:00 AM [facility] Tablet [Pyridium] Center) Calcium Carbonate 1250 MG / 05/11/2019 NEXTGEN ([facility] Cholecalciferol 125 UNT 12:00:00 AM [facility] Oral Tablet [place]) Cyclobenzaprine 04/21/2019 NEXTGEN (Mayito nt hydrochloride 5 MG Oral 12:00:00 AM [facility] Medical Tablet [place]) Naproxen 500 MG Oral Tablet 04/21/2019 NEXTGEN ([facility] 12:00:00 AM [facility]) Ibuprofen 400 MG Oral 01/28/2019 NEXTGE N ([facility] Tablet 12:00:00 AM [facility]) Acetic Acid 20 MG/ML Otic 01/28/2019 NE XTGEN ([facility] Solution 12:00:00 AM [facility]) benzonatate 200 MG Oral 10/15/2018 NEXT GEN ([facility] Capsule 12:00:00 AM [facility]) Magnesium Hydroxide 80 08/04/2018 NEXTG EN ([facility] MG/ML Oral Suspension 12:00:00 AM [facility]) Polymyxin B 23455 UNT/ML / 04/09/2018 N EXTGEN ([facility] Trimethoprim 1 MG/ML 12:00:00 AM [facility] Ophthalmic Solution [place]) NITROFURANTOIN, 04/09/2018 NEXTGEN ([place] MACROCRYSTALS 50 MG Oral 12:00:00 AM [facility] Capsule [place]) Calcium Carbonate 1250 MG / 04/03/2018 NEXTGEN ([facility] Cholecalciferol 125 UNT 12:00:00 AM [facility] Oral Tablet [place]) Omeprazole 20 MG Delayed 01/30/2018 NEX TGEN ([facility] Release Oral Capsule 12:00:00 AM [facility]) Ciprofloxacin 250 MG Oral 12/03/2017 NE XTGEN ([facility] Tablet [Cipro] 12:00:00 AM [facility]) Loratadine 10 MG Oral 08/15/2015 NEXTGE N ([facility] Tablet 12:00:00 AM [facility]) Acetaminophen 500 MG Oral 03/14/2015 NE XTGEN [facility]Mapap[facility]
[2020-03-14] MEDS ORDERED: KETOROLAC TROMETHAMINE 60 MG/2 ML VIAL IM ONE (17:21)
--- NOTE | 2020-03-14 17:30 | PDOC ---
History of Present Illness - General Chief Complaint: Back Pain Stated Complaint: BACK PAIN Time Seen by Provider: 03/14/20 17:16 History Source: Patient Exam Limitations: No Limitations - History of Present Illness Initial Comments: 03/14/20 17:27 40-year-old female presents to ED with complaints of mid back pain which she describes as soreness worsening with movement. Patient denies bilateral flank pain, abdominal pain, chest pain, shortness of breath. Patient states no recent injury, or recent travel. Patient states no history of back pain or rash presently to area. Patient states took Tylenol 650 mg with no relief 03/14/20 17:28 Occurred: reports: yesterday Severity: reports: mild Pain Location: reports: back Method of Injury: Yes: unknown Associated Symptoms (Fall): denies symptoms Past History - Travel History Traveled outside of the country in the last 30 days: No Close contact w/someone who was outside of country & ill: No - Medical History Allergies/Adverse Reactions: Allergies Allergy/AdvReac Type Severity Reaction Status Date / Time morphine AdvReac Verified 03/14/20 16:53 Anemia: No Asthma: No Cancer: No Cardiac Disorders: No CVA: No COPD: No DVT: No Dementia: No Diabetes: No Dialysis: No GI Disorders: No Disorders: No HTN: No Hypercholesterolemia: No Kidney Stones: No Liver Disease: No Psychiatric Problems: No Seizures: No Thyroid Disease: No Lung CA: No - Surgical History Abdominal Surgery: No Appendectomy: No Cardiac Surgery: No Cholecystectomy: No Gastric Stapling: No GI Surgery: No Lung Surgery: No Neurologic Surgery: No - Reproductive History Is Patient Now?: No - Immunization History Immunization Up to Date: No - Psycho-Social/Smoking History Patient Lives Alone: No Lives with/in: spouse/SO Smoking History: Never smoked Have you smoked in the past 12 months: No Number of Cigarettes Smoked Daily: 0 - Substance Abuse Hx (Audit-C & DAST Scrn) How often the patient has a drink containing alcohol: Never Score: In Men: 4 or > Positive; In Women: 3 or > Positive: 0 Screen Result (Pos requires Nsg. Audit-10AR): Negative In the last yr the pt used illegal drug/Rx for NonMed reason: No Score: Yes response is considered Positive: 0 Screen Result (Positive result requires Nsg. DAST-10): Negative Trauma Specific PMHX - Complaint Specific PMHX Arthritis: No Review of Systems - Review of Systems Able to Perform ROS?: Yes Is the patient limited [place] proficient: Yes Constitutional: No: Symptoms Reported HEENTM: No: Symptoms Reported Respiratory: No: Symptoms reported Cardiac (ROS): No: Symptoms Reported ABD/GI: No: Symptoms Reported : No: Symptoms Reported Musculoskeletal: Yes: Back Pain. No: Joint Pain, Muscle Pain, Neck Pain Integumentary: No: Symptoms Reported Neurological: No: Symptoms reported Endocrine: No: Symptoms Reported Hematologic/Lymphatic: No: Symptoms Reported *Physical Exam - Vital Signs Last Vital Signs Temp Pulse Resp BP Pulse Ox 98 F 85 16 129/83 100 03/14/20 16:45 03/14/20 16:45 03/14/20 16:45 03/14/20 16:45 03/14/20 16:45 - Physical Exam General Appearance: Yes: Nourished, Appropriately Dressed. No: Apparent Distress HEENT: negative: Pale Conjunctivae Neck: positive: Supple Respiratory/Chest: positive: Lungs Clear, Normal Breath Sounds. negative: Chest Tender, Respiratory Distress, Accessory Muscle Use Cardiovascular: positive: Regular Rhythm, Regular Rate. negative: Murmur Musculoskeletal: positive: Vertebral Tenderness (Bilateral paraspinous at T8-T12 level). negative: CVA Tenderness, Decreased Range of Motion Extremity: positive: Normal Inspection Integumentary: positive: Normal Color. negative: Rash Neurologic: positive: Motor Strength 5/5 (Ambulatory) ED Treatment Course - RADIOLOGY Radiology Studies Ordered: Category Date Time Status CHEST PA & LAT [RAD] Stat Radiology 03/14/20 17:20 Ordered Medical Decision Making - Medical Decision Making 03/14/20 17:30 Chief complaint: Patient with mid back pain worsened with movement since yesterday. Patient took 650 mg of Tylenol with no improvement. No other associated factors. Exam: Patient with point tenderness bilaterally to paraspinous muscles of T8- T12. Plan: Chest x-ray Toradol IM 03/14/20 18:04 CXR -. Pt feeling better DC home with recommendations to take Motrin Discharge - Discharge Information Problems reviewed: Yes Clinical Impression/Diagnosis: Musculoskeletal back pain Condition: Good Disposition: HOME - Follow up/Referral Referrals: Thomas Fraga MD [Primary Care Provider] - - Patient Discharge Instructions Patient Printed Discharge Instructions: DI for Thoracic Back Pain Additional Instructions: Please take 400 to 600 mg for Motrin of Motrin every 6-8 hours for control of pain - Post Discharge Activity
[2020-03-14] MEDS ORDERED: KETOROLAC TROMETHAMINE 30 MG/1 ML VIAL ONE (17:49)
== END 2020-03-14 18:56 | disposition home or self-care (01) ==
LOC: JERFT 16:45
PROC: 3E0233Z Introduction of Anti-inflammatory into Muscle, Percutaneous Approach (ICD-10-PCS; principal; 2020-03-14)
DX: M54.5 Low back pain (principal)
CPT/HCPCS: 71046-TC-FY; 99284-25

== ENCOUNTER 2020-07-03 22:39 | Emergency (ER) | payer OTHER ==
[2020-07-03 22:47] VITALS: BP 143/85; PULSE 76; TEMP 98; BMI 29.2
[2020-07-03 23:24] LABS: EOS % 2.2 % (0-4.5); HEMATOCRIT 41.3 % (32.4-45.2); HEMOGLOBIN 14.5 GM/dl (10.7-15.3); LYMPH % 32.2 % (8-40); MCHC 35.2 g/dl (32.0-36.0); MEAN CELL VOLUME 102.3 fl (80-96); MEAN PLT VOLUME 8.8 fl (7.5-11.1); MONO % 4.8 % (3.8-10.2); NEUT % 58.8 % (42.8-82.8); PLATELET COUNT 236 K/MM3 (134-434); RBC 4.04 M/mm3 (3.60-5.2); WHITE BLOOD COUNT 6.9 K/mm3 (4.0-10.8)
[2020-07-03 23:33] LABS: ALBUMIN 4.3 g/dl (3.4-5.0); CALCIUM 9.2 mg/dl (8.5-10); CREATININE 0.6 mg/dl (0.55-1.3); POTASSIUM 4.1 mmol/L (3.5-5.1); TOT PROT 7.5 g/dl (6.4-8.2)
== END 2020-07-04 01:33 | disposition home or self-care (01) ==
LOC: FER 22:39
DX: R00.2 Palpitations (principal)
CPT/HCPCS: 36415; 71045-TC-FY; 80053; 84443; 84484; 85025; 93005; 99284-25

== ENCOUNTER 2020-07-07 14:00 | Emergency (ER) | payer OTHER ==
[2020-07-07 14:52] VITALS: BP 123/76; PULSE 79; TEMP 97.8; BMI 29.2
[2020-07-07 15:05] LABS: BASO % 3.3 % (0-2.0); EOS % 1.7 % (0-4.5); HEMATOCRIT 41.5 % (32.4-45.2); HEMOGLOBIN 14.4 GM/dl (10.7-15.3); LYMPH % 23.3 % (8-40); MCH 35.2 pg (25.7-33.7); MCHC 34.7 g/dl (32.0-36.0); MEAN CELL VOLUME 101.5 fl (80-96); MEAN PLT VOLUME 9.2 fl (7.5-11.1); NEUT % 65.7 % (42.8-82.8); PLATELET COUNT 234 K/MM3 (134-434); RBC 4.09 M/mm3 (3.60-5.2); RDW 12.1 % (11.6-15.6); WHITE BLOOD COUNT 7.6 K/mm3 (4.0-10.8)
[2020-07-07 15:19] LABS: ALBUMIN 4.3 g/dl (3.4-5.0); BILIRUBIN,TOTAL 1.5 mg/dl (0.2-1); CALCIUM 9.1 mg/dl (8.5-10); CREATININE 0.5 mg/dl (0.55-1.3); POTASSIUM 4.5 mmol/L (3.5-5.1); TOT PROT 7.9 g/dl (6.4-8.2)
[2020-07-07 15:19] LABS: EPITHELIAL CELLS FEW /hpf
== END 2020-07-07 19:50 | disposition home or self-care (01) ==
LOC: FER 14:00
DX: K80.20 Calculus of gallbladder without cholecystitis without obstruction (principal)
CPT/HCPCS: 36415; 74176-TC; 76830-TC; 80053; 81003; 81015; 83690; 84703; 85025; 87086; 99285-25